=== PATIENT | male | born 1935 | race Caucasian/White ===

== ENCOUNTER 2016-06-16 13:56 | Inpatient (IN) ==
[2016-06-16] MEDS ORDERED: PATIENT'S OWN MED SUBQ SCH (14:45)
[2016-06-16] MEDS ORDERED: PATIENT'S OWN MED MISC SCH (14:45)
[2016-06-16 15:02] LABS: ALLEN TEST YES; BE 1.4 mmoll (-3.0-3.0); BLOOD TYPE ARTERIAL; DRAW SITE L RADIAL; METHB 0.7 % (0.0-1.5); O2(CT) 17.7 mL/dL (15.0-23.0); PCO2(98.6) 35 mmHg (35-45); PO2(98.6) 88 mmHg (60-100); SAMPLE BLOOD; SAO2 100.8 % (95.0-100.0); THB 12.9 g/dL (11.5-17.4); pH(98.6) 7.46 (7.35-7.45)
[2016-06-16 15:03] LABS: MODALITY ROOM AIR
--- NOTE | 2016-06-16 15:11 | Diag Imaging Result Document ---
PROCEDURE NAME: CHEST-2 VIEWS - 06/16/2016 PA AND LATERAL RADIOGRAPH OF THE CHEST: COMPARISON: 05/26/2016. FINDINGS: Inspiration is suboptimal. There is a stable calcified granuloma in the right upper lung zone. The lungs are grossly clear, otherwise. There is no definite pleural fluid collection. Cardiac silhouette and central vasculature are grossly unremarkable. IMPRESSION: Stable chest with no evidence of acute pathology.
[2016-06-16 15:27] LABS: MANUAL DIFF NEEDED? NO
--- NOTE | 2016-06-16 15:27 | EKG Report ---
Test Performed on : 06/16/2016 2:46:41 PM Test Reason : chest pain Blood Pressure : / mmHG Vent. Rate : 066 BPM Atrial Rate : 066 BPM P-R Int : 210 ms QRS Dur : 098 ms QT Int : 406 ms P-R-T Axes : 056 -23 050 degrees QTc Int : 425 ms Sinus rhythm. with 1st degree AV block. Cannot rule out Anterior infarct , age undetermined Abnormal ECG When compared with ECG of 31-MAY-2016 06:09, premature atrial complexes. are no longer present Confirmed by Javier Rojas MD ([id number]) on 06/17/2016 9:42:36 PM
[2016-06-16 15:30] LABS: BASO% 0.4 % (0.0-0.8); EOS# 0.34 X1000 (0.0-0.7); EOS% 4.3 % (0.0-10.0); HEMATOCRIT 38.2 % (42.0-52.0); HEMOGLOBIN 12.9 g/dL (14.0-18.0); LYMPH% 26.9 % (20.5-51.1); MCH 30.7 PG (27-31); MCHC 33.8 g/dL (33-37); MONO# 0.64 X1000 (0.11-0.59); MONO% 8.2 % (1.7-9.3); MPV 9.9 FL (7.4-10.4); NEUT% 60.2 % (42.2-75.2); PLT 208 X1000 (130-400)
[2016-06-16 15:36] LABS: INR 1.07; PROTIME 11.4 Seconds (9.2-11.7)
[2016-06-16 15:54] LABS: ALBUMIN 3.8 g/dL (3.5-5.0); CALCIUM 8.8 mg/dL (8.8-10.2); POTASSIUM 4.5 mmol/L (3.5-5.1); TOTAL BILIRUBIN 0.66 mg/dL (0.20-1.00); TOTAL PROTEIN 6.9 g/dL (6.3-8.3)
[2016-06-16] MEDS: ALBUTEROL NEB INH PRN ×3 (16:09→23:09)
[2016-06-16] MEDS: MORPHINE IV PRN (20:09)
[2016-06-16] MEDS: PROTONIX IV SCH (20:09)
[2016-06-16] MEDS: SODIUM CHLORIDE 0.9% INJ SCH (20:09)
[2016-06-16] MEDS: COREG PO SCH (20:18)
--- NOTE | 2016-06-16 22:05 | HISTORY AND PHYSICAL ---
CHIEF COMPLAINT: Symptomatic gallstone disease. Complains of pain in the right upper quadrant, back pain. HISTORY OF PRESENT ILLNESS: He is a 77-year-old white gentleman, recently discharged from the hospital after near-syncope evaluation. He was found to have symptomatic gallstone disease. He had a cardiac workup done by Dr. Masterson. He is stable. Patient wants to go home to do as an elective surgery. He continues to have intermittent abdominal pain and got admitted today for a laparoscopic cholecystectomy. Case was discussed with Dr. Barahona and Dr. Borjas. He is also on insulin pump. He has been scheduled for tomorrow afternoon. He also is very anxious. He needs Ativan an hour before the procedure. PAST MEDICAL HISTORY: 1. Morbid obesity. 2. Chronic kidney disease stage 3. 3. Coronary artery disease. 4. Type 2 diabetes on insulin pump. 5. Hypertension. 6. Hyperlipidemia. 7. Sleep apnea. 8. History of DVT in the left leg with chronic venous stasis dermatitis. 9. Chronic back pain due to spondylosis. 10. Symptomatic gallstone disease. PAST SURGICAL HISTORY: Left foot surgery, bilateral cataract surgery, history of laparotomy for benign tumor excision. IVC filter. Multiple cardiac stents. Repair of AV fistula in the groin and I and D of sebaceous cyst in the back and buttock. MEDICATIONS: Coreg 25 mg p.o. b.i.d., lisinopril/hydrochlorothiazide 20/12.5 daily, Neurontin 300 mg at bedtime, Effient 10 mg daily, Flomax 0.4 daily, Lasix 40 daily, allopurinol 100 daily, NovoLog, insulin pump. ALLERGIES: Not known. SOCIAL HISTORY: . Six children. 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 No smoking. No alcohol. Lives in [place]. FAMILY HISTORY: Father of heart attack at the age of 40. Mom of brain aneurysm at 39. HEALTH MAINTENANCE: Flu vaccine 2016, pneumonia in 2009, tetanus 2014, colonoscopy 2017, last stress test was unremarkable by Dr. Masterson. REVIEW OF SYSTEMS: HEENT: No headache. No vision problem. No earache. No sore throat. Neck: No goiter. No lymphadenopathy. No bruit. Cardiopulmonary: No chest pain, shortness of breath, PND, orthopnea. GI: Upper abdominal pain and the back pain.mostly on right side. : No history of hesitancy, frequency. Neurologic: No focal symptoms or weakness. PHYSICAL EXAMINATION: VITAL SIGNS: Stable. HEIGHT AND WEIGHT: 5 feet 7, 278 pounds. HEENT: Atraumatic, normocephalic. Pupils equal, react to light. TMs are normal. Nose and throat within normal limits. NECK: Supple. No lymphadenopathy. No goiter. CHEST: Bilateral air entry. No rales, no wheezing. HEART: Sounds are regular. No murmur. ABDOMEN: Belly is soft, obese, nontender. Good bowel sounds. No Caal's sign. EXTREMITIES: Chronic venous stasis changes in the left leg. NEUROLOGIC: No focal. INVESTIGATIONS: White cell count 7.8, hematocrit 38, platelets 208,000. PT 11 , INR 1. ABG: PH is 7.46, pCO2 35. PO2 88. SMA 7 is normal. Creatinine is 1.3. Glucose 149. ProBNP 1212. Amylase is normal. ASSESSMENT AND PLAN: 1. An 81-year-old, white gentleman, admitted to the hospital basically for symptomatic gallstone disease. Preop cardiac workup is negative. Plan is IV fluids after midnight and morphine as needed and Ativan 1 hour before the procedure. 2. Reconcile home medicines. 3. Hold insulin pump after midnight and continue on sliding scale. Discussed with Dr. Borjas for surgical consult and will follow up. Patient already stopped taking Effient for the last 3 days. Follow up. [facility]
[2016-06-16] MEDS: NS 1,000 ML IV SCH (22:40)
[2016-06-16] MEDS: AMBIEN PO PRN (22:43)
[2016-06-17] MEDS: MORPHINE IV PRN ×4 (00:33→22:26)
[2016-06-17] MEDS: ALBUTEROL NEB INH PRN ×3 (04:07→19:57)
[2016-06-17] MEDS ORDERED: ATIVAN IV ONE (10:36)
[2016-06-17] MEDS: PRINZIDE 20/12.5MG PO SCH (10:42)
[2016-06-17] MEDS: COREG PO SCH ×2 (10:42→20:14)
--- NOTE | 2016-06-17 11:32 | PROGRESS NOTE ---
DATE: 06/17/2016 SUBJECTIVE: Feels well. He continues to intermittently have colicky right upper quadrant pain. No chest pain. No shortness of breath. He is quite anxious about surgery, but he is overall doing well with this also. OBJECTIVE: Vital Signs: Temperature is 98.1 degrees, pulse 58, blood pressure 171/60, oxygen saturation 99% on room air. General: He is alert, in no acute distress. HEENT: There is no scleral icterus Cardiovascular: Normal rate, regular rhythm. Pulmonary: No increased work of breathing. Abdomen: Soft, nontender, nondistended, but he is quite obese with a large midline incision. Integument: Otherwise warm and dry without jaundice. LABORATORY DATA: White count normal at 7, hematocrit 38, INR is 1.07. His ABG looked good at 7.46, 35, Creatinine stable for him at 1.3. Glucose was elevated at 400 this morning but was normal at 93 yesterday. He is being treated with his insulin pump. ASSESSMENT AND PLAN: This is an 81-year-old male well known to as is his family who has symptomatic cholelithiasis that is impeding his life quite significantly. He has been off of his Effient. He has had extensive cardiac workup for his chest pain that has been unrevealing. Dr. Andino feels he is safe for surgery, as do I. We had an extensive discussion regarding risks, benefits and alternatives including the possibility of requiring open cholecystectomy in the setting of dense adhesions. We will plan to go to surgery today to perform cholangiogram and postoperative course will be dictated by the findings at the time of surgery.
[2016-06-17] MEDS ORDERED: SODIUM CHLORIDE 0.9% ONE (11:56)
[2016-06-17] MEDS ORDERED: MARCAINE 0.25% PF/EPI 1:200,000 ONE (11:56)
[2016-06-17] MEDS ORDERED: LR 0 ML ONE (11:56)
[2016-06-17] MEDS ORDERED: KEFZOL 2 GM/D5W 50 ML ONE (12:16)
[2016-06-17] MEDS ORDERED: REGLAN ONE (12:18)
[2016-06-17] MEDS ORDERED: PEPCID ONE (12:18)
[2016-06-17 13:53] LABS: URINE SOURCE CATH
[2016-06-17 14:04] LABS: BILIRUBIN URINE NEGATIVE (NEGATIVE); BLOOD URINE TRACE-LYSED (NEGATIVE); CLARITY CLEAR (CLEAR); COLOR YELLOW; GLUCOSE URINE 500 mg/dL (NEGATIVE); LEUKOCYTES URINE NEGATIVE (NEGATIVE); NITRITE URINE NEGATIVE (NEGATIVE); PH URINE 5.5; PROTEIN URINE TRACE mg/dL (NEGATIVE); UROBILINOGEN URINE 0.2 EU/dL (0.2-1.0)
[2016-06-17 14:05] LABS: URINE EPITHELIAL CELLS <10 /HPF (<10); URINE RBC <10 /HPF (<10); URINE WBC <10 /HPF (<10)
[2016-06-17] MEDS ORDERED: DIPRIVAN 1% ONE (15:13)
[2016-06-17] MEDS ORDERED: FENTANYL ONE (15:13)
[2016-06-17] MEDS ORDERED: NEOSTIGMINE ONE (15:22)
[2016-06-17] MEDS ORDERED: XYLOCAINE-MPF 2% ONE (15:23)
[2016-06-17] MEDS ORDERED: SODIUM CHLORIDE 0.9% 30 ML ONE (15:23)
[2016-06-17] MEDS ORDERED: ZOFRAN ONE (15:23)
[2016-06-17] MEDS ORDERED: QUELICIN (DOSE) ONE (15:23)
[2016-06-17] MEDS ORDERED: NORCURON ONE (15:23)
[2016-06-17] MEDS ORDERED: ROBINUL ONE (15:23)
[2016-06-17] MEDS ORDERED: NEO-SYNEPHRINE ONE (15:23)
[2016-06-17] MEDS ORDERED: LR 1,000 ML ONE (15:23)
[2016-06-17 15:37] LABS: ALLEN TEST YES; BE -1.1 mmoll (-3.0-3.0); BLOOD TYPE ARTERIAL; DRAW SITE R RADIAL; METHB 1.7 % (0.0-1.5); PCO2(98.6) 48 mmHg (35-45); PO2(98.6) 124 mmHg (60-100); SAMPLE BLOOD; SAO2 99.7 % (95.0-100.0); SRATE 12 BPM; THB 12.4 g/dL (11.5-17.4); TVOL 700 mL; pH(98.6) 7.33 (7.35-7.45)
[2016-06-17 15:39] LABS: MODALITY VENTILATOR
[2016-06-17] MEDS ORDERED: NS 1,000 ML ONE (16:28)
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
[2016-06-17] MEDS: ZYLOPRIM PO SCH (17:26)
[2016-06-17] MEDS: FLOMAX PO SCH (17:26)
[2016-06-17] MEDS: LASIX PO SCH (17:26)
[2016-06-17] MEDS: NS 1,000 ML IV SCH (17:27)
[2016-06-17] MEDS: PATIENT'S OWN MED SUBQ SCH ×2 (18:36→23:27)
[2016-06-17] MEDS: PROTONIX IV SCH (20:09)
[2016-06-17] MEDS: PERIDEX MT SCH (20:09)
[2016-06-18] MEDS: MORPHINE IV PRN ×4 (00:25→21:43)
[2016-06-18] MEDS: AMBIEN PO PRN ×2 (01:20→20:25)
[2016-06-18] MEDS: ALBUTEROL NEB INH PRN ×6 (02:30→23:19)
[2016-06-18] MEDS: PATIENT'S OWN MED SUBQ SCH ×4 (06:02→21:38)
[2016-06-18] MEDS: LASIX PO SCH (08:52)
[2016-06-18] MEDS: COREG PO SCH ×2 (08:52→20:25)
[2016-06-18] MEDS: PERIDEX MT SCH ×2 (08:52→20:25)
[2016-06-18] MEDS: PRINZIDE 20/12.5MG PO SCH (08:52)
[2016-06-18] MEDS: FLOMAX PO SCH (08:52)
[2016-06-18] MEDS: ZYLOPRIM PO SCH (08:52)
--- NOTE | 2016-06-18 13:20 | PROGRESS NOTE ---
DATE: 06/18/2016 SUBJECTIVE: He feels okay, a little sore. No nausea or vomiting. OBJECTIVE: Vital Signs: Temperature 97.6 degrees, pulse was 58, blood pressure 129/47, oxygen saturation 100% on room air. General: He is alert. HEENT: No scleral icterus. Abdomen: Soft, appropriately tender. Incision clean, dry, and intact with some serosanguineous drainage. The GUMARO drain is serosanguineous. LABORATORY DATA: A review of his labs, hematocrit is stable. Glucose has been okay. ASSESSMENT AND PLAN: An 81-year-old male, status post open cholecystectomy, laparoscopic converted to open cholecystectomy related to intra-abdominal adhesions. He is doing okay. We are going to remove his Langley catheter and advance his diet as tolerated. He will need physical therapy and up out of bed and possibly plan for discharge tomorrow if he is tolerating a diet. I can remove his drain next Wednesday in my office.
[2016-06-18] MEDS: NS 1,000 ML IV SCH (17:23)
[2016-06-18] MEDS ORDERED: ZOFRAN IV PRN (17:53)
[2016-06-18] MEDS: PROTONIX IV SCH (20:26)
[2016-06-18] MEDS: SODIUM CHLORIDE 0.9% INJ SCH (20:26)
[2016-06-19] MEDS: ALBUTEROL NEB INH PRN ×5 (03:14→20:53)
[2016-06-19] MEDS: PATIENT'S OWN MED SUBQ SCH ×4 (06:06→20:03)
[2016-06-19 06:21] LABS: MANUAL DIFF NEEDED? NO
[2016-06-19 06:22] LABS: BASO% 0.3 % (0.0-0.8); EOS# 0.34 X1000 (0.0-0.7); EOS% 3.8 % (0.0-10.0); HEMATOCRIT 33.7 % (42.0-52.0); HEMOGLOBIN 11.6 g/dL (14.0-18.0); IMM GRAN# 0.02 X1000 (0.0-0.04); IMM GRAN% 0.2 % (0.0-0.5); LYMPH% 24.8 % (20.5-51.1); MCH 31.2 PG (27-31); MCHC 34.4 g/dL (33-37); MCV 90.6 FL (81-99); MONO# 1.09 X1000 (0.11-0.59); MONO% 12.3 % (1.7-9.3); MPV 10.6 FL (7.4-10.4); NEUT% 58.6 % (42.2-75.2); PLT 184 X1000 (130-400); RBC 3.72 XMIL (4.7-6.1)
[2016-06-19 06:33] LABS: CALCIUM 8.2 mg/dL (8.8-10.2); POTASSIUM 4.4 mmol/L (3.5-5.1)
[2016-06-19] MEDS: MORPHINE IV PRN ×3 (06:37→20:02)
--- NOTE | 2016-06-19 06:37 | PROGRESS NOTE ---
DATE: 06/19/2016 SUBJECTIVE: The patient is doing okay. He says he has some mild nausea. No major issues. OBJECTIVE: Vital Signs: The patient is currently afebrile. His vital signs have been stable. GUMARO drain has 60 mL of serosanguineous output noted. General: No acute distress. Resting comfortably. Cardiovascular: Regular rate and rhythm. Lungs: Grossly clear. Abdomen: Soft, obese. Appropriately tender. The incisions with dressing in place. GUMARO drain is in place with serosanguineous output. LABORATORIES OF NOTE: The patient's glucose was 42. ASSESSMENT AND PLAN: An 81-year-old male, status post open cholecystectomy. At this time, he is clinically doing okay. His hypoglycemia is currently being managed by his primary care physician. At this time, we will keep the Yariel-Montalvo drain in place until he follows up with Dr. Borjas in his office next week. He can be discharged once deemed medically stable by his primary care team.
[2016-06-19] MEDS ORDERED: D50W SYRINGE ONE ×2 (06:52→16:27)
[2016-06-19] MEDS: FLOMAX PO SCH (08:38)
[2016-06-19] MEDS: PRINZIDE 20/12.5MG PO SCH (08:38)
[2016-06-19] MEDS: ZYLOPRIM PO SCH (08:38)
[2016-06-19] MEDS: COREG PO SCH ×2 (08:38→20:02)
[2016-06-19] MEDS: LASIX PO SCH (08:38)
[2016-06-19] MEDS: PERIDEX MT SCH ×2 (08:38→20:02)
[2016-06-19] MEDS ORDERED: BENADRYL IV PRN (10:39)
[2016-06-19] MEDS: NS 1,000 ML IV SCH (14:07)
[2016-06-19] MEDS ORDERED: D50W SYRINGE IV ONE (17:35)
[2016-06-19] MEDS: PROTONIX IV SCH (20:02)
[2016-06-19] MEDS: SODIUM CHLORIDE 0.9% INJ SCH (20:02)
--- NOTE | 2016-06-20 06:43 | PROGRESS NOTE ---
DATE: 06/20/2016 SUBJECTIVE: The patient is doing okay. No major issues. OBJECTIVE: Vital Signs: Patient is currently afebrile. His vital signs have been stable. General: His GUMARO has had 20 mL of serosanguineous output. No acute distress. Resting comfortably. Cardiovascular: Regular rate and rhythm. Lungs: Grossly clear. Abdomen: Soft, obese. Appropriately tender. Incision with dressing in place. GUMARO drain as noted above. LABORATORY: Glucose trend has been reviewed. ASSESSMENT/PLAN: An 81-year-old, male status post open cholecystectomy. At this time, he is clinically doing okay. His glucose levels have appeared to be relatively stable, although ranging anywhere from 40-60. This is currently being managed by his primary care physician at this time. Once deemed clinically stable, could be discharged home and have his Yariel-Montalvo drain removed by Dr. Borjas on Wednesday in the office.
[2016-06-20] MEDS: PATIENT'S OWN MED SUBQ SCH ×2 (06:59→10:43)
[2016-06-20] MEDS: ALBUTEROL NEB INH PRN ×2 (07:36→11:38)
[2016-06-20] MEDS: FLOMAX PO SCH (09:12)
[2016-06-20] MEDS: LASIX PO SCH (09:12)
[2016-06-20] MEDS: COREG PO SCH (09:12)
[2016-06-20] MEDS: PRINZIDE 20/12.5MG PO SCH (09:12)
[2016-06-20] MEDS: ZYLOPRIM PO SCH (09:13)
[2016-06-20] MEDS: PERIDEX MT SCH (09:13)
[2016-06-20 11:17] VITALS: BP 133/56
--- NOTE | 2016-06-20 12:29 | PROGRESS NOTE ---
DATE: 06/20/2016 SUBJECTIVE: Mr. Nelson had cholecystectomy done by Dr. Borjas. He is doing better. He had some episode of hypoglycemia yesterday; however, he is eating better. He wants to go home today and I will discharge him. -0
--- NOTE | 2016-06-21 21:42 | DISCHARGE SUMMARY ---
ADMISSION DATE: 06/16/2016 DISCHARGE DATE: 06/20/2016 DISCHARGING DIAGNOSIS: Symptomatic gallstone disease. SECONDARY DIAGNOSES: 1. Morbid obesity. 2. Chronic kidney disease stage 3. 3. Coronary artery disease status post stent and stable cardiac perfusion scan 2016. 4. Type 2 diabetes on insulin pump. 5. Hypertension. 6. Hyperlipidemia. 7. Sleep apnea. 8. History of deep vein thrombosis in the left leg. 9. Chronic venous stasis dermatitis. 10. Chronic back pain due to spondylosis. CONSULTS: Dr. Nick Borjas. PROCEDURES: Open cholecystectomy. BRIEF HISTORY: Please see the H and P that was done on 06/16/2016. In brief he is a 77-year-old white gentleman admitted to the hospital for symptomatic gallstone disease. The patient was asked to stop the Effient prior to the admission. He also had a clearance from the [facility]. On the following day patient had open cholecystectomy done. Postoperative course was uneventful. GUMARO drain was removed. Langley catheter was removed. Blood sugars were running low. Insulin pump was taken out. LABORATORIES: At the time of discharge. CBC. White cell count 8.8, hematocrit 33.7, platelets 184,000. ABG, pH is 7.33, pCO2 35, PO2 88 on room air. SMA 7, creatinine is 2.0. Patient was discharged in stable condition by Dr. Fermín Suarez and Dr. Baig with these following instructions. Coreg 25 p.o. b.i.d., lisinopril/hydrochlorothiazide 20/12.5 daily, insulin pump, Effient 10 mg daily, Flomax 0.4 daily, Lasix 40 mg daily, albuterol as needed, Zyloprim 100 mg daily, [place] 10 as needed for pain. Follow up with Dr. Borjas next week as well as my office.
== END 2016-06-20 12:45 | disposition home or self-care (01) | DRG 415 ==
LOC: DIRADM 13:56 → 4N 14:16
PROVIDERS: ADMIT Internal Medicine; ATTEND Internal Medicine
PROC: 0FT40ZZ Resection of Gallbladder, Open Approach (ICD-10-PCS; principal; 2016-06-17 12:25)
PROC: 0FJ44ZZ Inspection of Gallbladder, Percutaneous Endoscopic Approach (ICD-10-PCS; 2016-06-17 12:25)
DX: K80.20 Calculus of gallbladder without cholecystitis without obstruction (principal); Z68.42 Body mass index [BMI] 45.0-49.9, adult; E11.22 Type 2 diabetes mellitus with diabetic chronic kidney disease; E11.649 Type 2 diabetes mellitus with hypoglycemia without coma; N18.3 Chronic kidney disease, stage 3 (moderate); Z96.41 Presence of insulin pump (external) (internal); E66.01 Morbid (severe) obesity due to excess calories; I12.9 Hypertensive chronic kidney disease with stage 1 through stage 4 chronic kidney disease, or unspecified chronic kidney disease; I25.10 Atherosclerotic heart disease of native coronary artery without angina pectoris; E78.5 Hyperlipidemia, unspecified; G47.30 Sleep apnea, unspecified; I83.12 Varicose veins of left lower extremity with inflammation; G47.33 Obstructive sleep apnea (adult) (pediatric); K66.0 Peritoneal adhesions (postprocedural) (postinfection); M47.819 Spondylosis without myelopathy or radiculopathy, site unspecified; N40.0 Benign prostatic hyperplasia without lower urinary tract symptoms; Z95.5 Presence of coronary angioplasty implant and graft; Z79.899 Other long term (current) drug therapy; Z79.02 Long term (current) use of antithrombotics/antiplatelets; Z86.718 Personal history of other venous thrombosis and embolism; I25.2 Old myocardial infarction; Z82.49 Family history of ischemic heart disease and other diseases of the circulatory system; Z83.3 Family history of diabetes mellitus
CPT/HCPCS: 71020; 80048; 80053; 81001; 82150; 82805; 82948; 83880; 85025; 85610; 88304; 93005; 93010; 94002; 94640; 94761; 94799; C1751; C9113; J0330; J0690; J1200; J2060; J2270; J2370; J2405; J2765; J3010; J7030; J7120; Q9966; J2710; S0028; S0164

== ENCOUNTER 2016-08-17 11:27 | Inpatient (IN) ==
--- NOTE | 2016-08-17 12:14 | EKG Report ---
Test Performed on : 08/17/2016 11:40:20 AM Test Reason : Chest Pain Blood Pressure : / mmHG Vent. Rate : 075 BPM Atrial Rate : 075 BPM P-R Int : 196 ms QRS Dur : 090 ms QT Int : 402 ms P-R-T Axes : 081 -18 039 degrees QTc Int : 448 ms Sinus rhythm. with premature supraventricular complexes. Otherwise normal ECG When compared with ECG of 16-JUN-2016 14:46, premature supraventricular complexes. are now present Minimal criteria for Anterior infarct are no longer present Unconfirmed Result
--- NOTE | 2016-08-17 13:18 | Diag Imaging Result Document ---
PROCEDURE NAME: SHANTANU ABDOMEN - 08/17/2016 KUB: FINDINGS: There is stool throughout the colon. There is no evidence of gastric or small-bowel dilatation. There is a vena cava filter. There is a surgical clip in the right upper quadrant. IMPRESSION: Mild constipation. No evidence of acute disease.
[2016-08-17 13:21] LABS: MANUAL DIFF NEEDED? NO
[2016-08-17 13:32] LABS: BASO% 0.6 % (0.0-0.8); EOS# 0.41 X1000 (0.0-0.7); EOS% 4.6 % (0.0-10.0); HEMATOCRIT 37.1 % (42.0-52.0); HEMOGLOBIN 12.5 g/dL (14.0-18.0); IMM GRAN# 0.02 X1000 (0.0-0.04); IMM GRAN% 0.2 % (0.0-0.5); LYMPH# 2.64 X1000 (1.2-3.4); LYMPH% 29.8 % (20.5-51.1); MCHC 33.7 g/dL (33-37); MCV 89.2 FL (81-99); MONO# 0.92 X1000 (0.11-0.59); MONO% 10.4 % (1.7-9.3); MPV 10.5 FL (7.4-10.4); NEUT% 54.4 % (42.2-75.2); PLT 206 X1000 (130-400); RBC 4.16 XMIL (4.7-6.1)
[2016-08-17 13:42] LABS: INR 1.01; PROTIME 10.6 Seconds (9.2-11.7); PTT 28.5 Seconds (22.0-36.0)
[2016-08-17 13:59] LABS: ALBUMIN 3.6 g/dL (3.5-5.0); CALCIUM 8.8 mg/dL (8.8-10.2); MAGNESIUM 1.9 mg/dL (1.5-2.7); POTASSIUM 4.5 mmol/L (3.5-5.1); TOTAL BILIRUBIN 0.38 mg/dL (0.20-1.00); TOTAL PROTEIN 7.3 g/dL (6.3-8.3)
[2016-08-17] MEDS ORDERED: DILAUDID IM PRN (15:15)
[2016-08-17] MEDS ORDERED: ZOFRAN IV PRN (15:15)
[2016-08-17] MEDS ORDERED: TYLENOL PO PRN (15:15)
[2016-08-17] MEDS ORDERED: ZOFRAN ONE (19:09)
[2016-08-17] MEDS ORDERED: DILAUDID ONE (19:09)
[2016-08-17 21:59] LABS: URINE MICRO REVIEW NEEDED? NO; URINE SOURCE CLEAN CATCH
[2016-08-17 22:02] LABS: BILIRUBIN URINE NEGATIVE (NEGATIVE); BLOOD URINE NEGATIVE (NEGATIVE); COLOR YELLOW; GLUCOSE URINE NEGATIVE (NEGATIVE); LEUKOCYTES URINE MODERATE (NEGATIVE); NITRITE URINE NEGATIVE (NEGATIVE); PROTEIN URINE NEGATIVE (NEGATIVE); SP GRAVITY URINE 1.011; TURBIDITY URINE CLEAR (CLEAR); UR EPITHELIAL CELLS <10 /HPF (<10); URINE BACTERIA NEGATIVE /HPF; URINE CULTURE NEEDED? YES; URINE RBC <10 /HPF (<10); URINE WBC <10 /HPF (<10); UROBILINOGEN URINE NORMAL (NORMAL)
--- NOTE | 2016-08-17 22:10 | HISTORY AND PHYSICAL ---
CHIEF COMPLAINT: 1. Chest pressure while shooting the pool. 2. Abdominal distention. 3. Swelling of left leg. HISTORY OF PRESENT ILLNESS: Is 81-year-old white gentleman was evaluated in the emergency room after he was shooting the pool developed upper abdominal discomfort, chest pain, shortness of breath. He also has left leg swelling and drainage. Patient was seen by Dr. Alvares. Patient was found to have azotemia, left leg cellulitis and also rule out [place]. His belly was swelling with some fluid and chest x-ray was stable. KUB constipation and dilated colon. Basically admitted to the hospital left leg cellulitis, evaluation of the chest pain to rule out [place]. He had recently stress test was done which is unremarkable, prior open cholecystectomy. As a result a hospital admission was warranted. PAST MEDICAL HISTORY: Morbid obesity, chronic kidney disease stage 3, coronary artery disease, type 2 diabetes on insulin pump, hypertension, hyperlipidemia, sleep apnea, chronic pain due to spondylosis, history of DVT in the left leg with chronic venous stasis dermatitis. PAST SURGICAL HISTORY: Cholecystectomy, left foot surgery, bilateral cataract surgery, history of laparotomy for benign tumor excision, IVC filter, multiple cardiac stents repair, AV fistula in the groin, I and D of sebaceous cyst in the back and buttock. MEDICINES: Coreg 25 p.o. b.i.d., lisinopril/hydrochlorothiazide 20/12.5 daily, Neurontin 300 bedtime, Effient 10 mg daily, Flomax 0.4 daily, Lasix 40 daily, allopurinol 100 daily, NovoLog insulin pump. ALLERGIES: Not known. SOCIAL HISTORY: . Six children. 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 No smoking, no alcohol, lives in [place]. FAMILY HISTORY: Father of heart attack at the age of 40, mom of brain aneurysm at 39. HEALTH MAINTENANCE: Flu vaccine 2016, pneumococcal vaccine 2009, tetanus 2013, colonoscopy 2006, last stress test May 2016 is unremarkable. REVIEW OF SYSTEMS: HEENT: No headache. No vision problem. No earache. No sore throat. Neck: No goiter. No lymphadenopathy. No bruit. Cardiopulmonary: Chest discomfort. No PND, no orthopnea. Swelling of left leg. GI: Abdominal distention, recently gallbladder surgery, constipation. : No history of hesitancy, frequency and chronic back pain. Neurologic: No obvious focal symptoms or weakness or seizures. PHYSICAL EXAMINATION: VITAL SIGNS: Afebrile, vitals are stable on 2 L of oxygen 94%. HEENT EXAM: Atraumatic, normocephalic. Pupils equal, react to light. TMs are normal. Nose and throat within normal limits. NECK: Supple. No lymphadenopathy. No goiter. CHEST: Bilateral air entry. No rales, no wheezing. HEART: Sounds are regular. BELLY: Soft, obese, nontender. Good bowel sounds. No masses palpable. RECTAL: Deferred. EXTREMITIES: Left leg is swollen, red. NEURO: No obvious deficits. INVESTIGATIONS: White cell count 8.8, hematocrit 37, platelets 206,000. PT 10, INR 1.0. SMA 7 is normal except BUN 14, creatinine 2.4. ProBNP is normal. LFTs were normal. Amylase, lipase were normal. ASSESSMENT AND PLAN: 1. 81-year-old white gentleman admitted to the hospital with atypical chest pain. Follow up on serial cardiac enzymes and continue on the Effient. 2. Abdominal distention, constipation. MiraLAX and Dulcolax as needed. 3. Left leg cellulitis. IV Zosyn. Wound care consult. 4. Reconcile home medications. 5. Type 2 diabetes on insulin pump. Follow up on sliding scale with insulin coverage. 6. Deep vein thrombosis prophylaxis with antithrombotic stockings and gastrointestinal prophylaxis IV Protonix. 7. Will follow up on clinical course. cc: David Andino MD
[2016-08-18] MEDS: PROTONIX IV SCH (00:04)
[2016-08-18] MEDS ORDERED: AMBIEN PO PRN ×2 (00:04→17:59)
[2016-08-18] MEDS ORDERED: MIRALAX PO ONE (00:04)
[2016-08-18] MEDS ORDERED: SODIUM CHLORIDE 0.9% INJ SCH (00:04)
[2016-08-18] MEDS: HUMULIN R SUBQ SCH ×5 (00:04→22:11)
[2016-08-18] MEDS ORDERED: NORCO-7.5 ONE (00:09)
[2016-08-18] MEDS: NORCO-7.5 PO PRN ×3 (00:16→22:49)
[2016-08-18] MEDS ORDERED: AMBIEN PO ONE (00:17)
[2016-08-18] MEDS: ZOSYN 3.375 GM/NS 3.375 GM/50 ML IVPB IV SCH ×4 (01:00→17:51)
--- NOTE | 2016-08-18 05:01 | EKG Report ---
Test Performed on : 08/17/2016 4:42:23 PM Test Reason : chest pain Blood Pressure : / mmHG Vent. Rate : 067 BPM Atrial Rate : 067 BPM P-R Int : 214 ms QRS Dur : 092 ms QT Int : 414 ms P-R-T Axes : 055 -14 050 degrees QTc Int : 437 ms Sinus rhythm. with 1st degree AV block. Otherwise normal ECG When compared with ECG of 17-AUG-2016 11:40, (Unconfirmed) premature supraventricular complexes. are no longer present Confirmed by Joyce LEYVA, Robert Reyes ([id number]) on 08/18/2016 7:19:03 PM
[2016-08-18 07:22] LABS: MANUAL DIFF NEEDED? NO
[2016-08-18 07:33] LABS: BASO% 0.5 % (0.0-0.8); EOS# 0.28 X1000 (0.0-0.7); EOS% 3.8 % (0.0-10.0); HEMATOCRIT 35.4 % (42.0-52.0); HEMOGLOBIN 11.7 g/dL (14.0-18.0); IMM GRAN# 0.02 X1000 (0.0-0.04); IMM GRAN% 0.3 % (0.0-0.5); LYMPH# 2.18 X1000 (1.2-3.4); LYMPH% 29.7 % (20.5-51.1); MCH 29.7 PG (27-31); MCHC 33.1 g/dL (33-37); MCV 89.8 FL (81-99); MONO# 1.01 X1000 (0.11-0.59); MONO% 13.8 % (1.7-9.3); MPV 10.4 FL (7.4-10.4); NEUT% 51.9 % (42.2-75.2); PLT 167 X1000 (130-400); RBC 3.94 XMIL (4.7-6.1)
[2016-08-18 07:48] LABS: HEMOGLOBIN A1C 7.9 % (4.8-6.0)
[2016-08-18 08:05] LABS: CALCIUM 8.5 mg/dL (8.8-10.2)
[2016-08-18 08:15] LABS: POTASSIUM 5.3 mmol/L (3.5-5.1)
[2016-08-18] MEDS: MIRALAX PO SCH (09:00)
[2016-08-18] MEDS: LASIX IV SCH (10:00)
--- NOTE | 2016-08-18 12:57 | CONSULTATION ---
DATE OF CONSULTATION: 08/18/2016 HISTORY OF PRESENT ILLNESS: This is an 81-year-old male well known to me who has venostasis in his bilateral lower extremities. He has recently completed Unna boot therapy of bilateral lower legs for some superficial ulcerations which were completely healed just a couple of weeks ago. He presented back now to Dr. Andino's service through the ER with atypical chest pain which he has chronically and is being worked up for that. He has noted increased swelling of his left lower extremity more so than the right. He has been unable to wear his compression garments due to discomfort at home. Denies any fevers. PAST MEDICAL HISTORY: 1. Obesity. 2. CKD. 3. Coronary artery disease. 4. Diabetes with an insulin pump. 5. Hypertension. 6. Hyperlipidemia. 7. Obstructive sleep apnea. 8. Chronic pain. 9. History of DVT in the left leg. PAST SURGICAL HISTORY: Cholecystectomy, left eye cataract, laparotomy for tumor excision, IVC filter, cardiac stents, repair of AV fistula in the groin, sebaceous cyst I and D. SOCIAL HISTORY: He is . His children are here in town. Daughter is with him now. 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 No smoking. No alcohol. Lives in [place]. FAMILY HISTORY: Coronary artery disease and cerebral aneurysm. REVIEW OF SYSTEMS: A 10-point review of systems is negative except as mentioned in HPI. PHYSICAL EXAMINATION: Temperature is 98.1, pulse 74, blood pressure 125/48, oxygen saturation 98% on 2 L. General: He is alert, no acute distress. HEENT: No scleral icterus. Cardiovascular: Normal rate, regular rhythm. Pulmonary: No increased work of breathing. He is on 2 L nasal cannula. Abdomen: Distended but at his baseline from an obesity standpoint. Nontender. Extremities: The right lower extremity has chronic venostasis changes, but there is no real edema here. The skin looks healthy with no ulceration. On the left side, this is more swollen than the right. There is some worsening of the chronic renetta appearance, more erythematous. There is a superficial ulceration of approximately 2 cm on the posterior aspect and several areas that are weeping clear fluid. Otherwise, normal pedal pulses distally. Neurologic: He is alert and oriented. Normal strength throughout. DIAGNOSTIC DATA: White count is 7, hematocrit 35, platelets 167. Creatinine is 2.7, potassium 5.3, glucose 335. Troponins are 0.046. Urinalysis with moderate leukocytes. ASSESSMENT AND PLAN: This is an 81-year-old man admitted with chest pain. He has chronic venostasis and history of DVT in his left lower extremity. His wound looked far better than this 2 weeks ago. At that time, we stopped Unna boot therapy and transitioned him over the compressive. I suspect now that he has just had inadequate compression therapy at home due to intolerance of compression stockings and that this is why he has worsened. However, I would like to repeat a lower extremity ultrasound on the left to rule out any acute DVT here contributing. I have asked Yvrose Kessler to place Unna boot back on left lower extremity. We will continue compression on the right. He is on antibiotics per Dr. Andino, and I think that is not unreasonable given the appearance that he has here and a new or a recurrent wound on his left posterior calf. We will continue to follow along. cc: MD David Carreno MD MTDD
--- NOTE | 2016-08-18 18:16 | PROGRESS NOTE ---
DATE: 08/18/2016 SUBJECTIVE: 1. Complains of left leg swelling and pain. 2. Insomnia. 3. No chest pain. Abdominal distention is improved after bowel movement. He has been off on insulin pump. REVIEW OF SYSTEMS: None reported. PHYSICAL EXAMINATION: 5 feet 6 inches, 272 pounds, afebrile.Vital Signs: Stable. On nasal oxygen 2 L 93%. HEENT Exam: Within normal limits. Neck: Supple. No lymphadenopathy. Chest: Clear. Heart: Sounds regular. Abdomen: Belly is soft, obese, suboptimal exam. Extremities: Left lower extremity was wrapped with a dressing. Neurological: Nonfocal. INVESTIGATIONS: CBC: White cell count 7.3, hematocrit 35, platelets of 167,000. Sodium 135, potassium 5.3, chloride 95, BUN 52, creatinine 2.6. Glucose 335. A1c 7.9. Cardiac enzymes were normal. Urinalysis is clear. ASSESSMENT AND PLAN: 1. Atypical chest pain. Recent stress test is negative. Ruled out for IA. 2. Abdominal distention probably constipation. Continue on MiraLAX and Dulcolax. 3. Insomnia. Ambien as needed. 4. Left leg cellulitis on IV Zosyn. Dr. Borjas consulted. He is going to do the Doppler studies. 5. Reconcile home medications. 6. Waiting for a bed in the upstairs. Discussed with the family. LEVEL OF DOCUMENTATION: 25 minutes. cc: David Andino MD
[2016-08-18] MEDS: LOVENOX SUBQ SCH (18:24)
[2016-08-18] MEDS ORDERED: SUBCUTANEOUS INSULIN PUMP MC SCH (21:00)
--- NOTE | 2016-08-18 22:01 | Extremity Venous Study ---
PROCEDURE NAME: Venous U/S Left Leg - 08/18/2016 INDICATION: 1. Edema, weeping of left leg. 2. History of DVT. REQUESTING PHYSICIAN: Dr. Nick Borjas. INSTRUCTOR [employer]I: Shayla. COMPARISON STUDY: 02/15/2012. PROCEDURE: Left lower extremity venous duplex and color flow imaging. EQUIPMENT: Starriserid E9 ultrasound system with a 9 LD transducer. FINDINGS: Imaging in the left lower extremity venous system with comparison shot of the right common femoral vein were obtained in both sagittal and transverse planes. Doppler was used to evaluate veins for spontaneity, phasicity, respiratory excursion, and digital augmentation. RESULTS: DVT noted in the left distal common femoral, superficial femoral vein, and popliteal vein, with some flow present. Characteristics may indicate that it might be chronic, although age is difficult to obtain on this study. There is reflux noted in bilateral common femoral veins. INTERPRETATION: DVT noted in the left distal common femoral, superficial femoral vein, and popliteal vein, with flow present,, which may be a chronic DVT. There is also reflux noted in the bilateral common femoral veins. cc: MD Nasrin Chapman MD Jagan Reddy, MD
[2016-08-18] MEDS: COREG PO SCH (22:48)
[2016-08-18] MEDS: PATIENT'S OWN MED SUBQ SCH (22:51)
[2016-08-19] MEDS: DUONEB (A & A) INH PRN ×4 (00:20→19:23)
[2016-08-19] MEDS: PROTONIX IV SCH (00:55)
[2016-08-19] MEDS: PRINZIDE 20/12.5MG PO SCH (08:15)
[2016-08-19] MEDS: LASIX IV SCH (08:15)
[2016-08-19] MEDS: FLOMAX PO SCH (08:15)
[2016-08-19] MEDS: ZYLOPRIM PO SCH (08:15)
[2016-08-19] MEDS: ZOSYN 3.375 GM/NS 3.375 GM/50 ML IVPB IV SCH ×3 (08:15→21:32)
[2016-08-19] MEDS: COREG PO SCH ×2 (08:15→21:28)
[2016-08-19] MEDS: MIRALAX PO SCH (08:16)
--- NOTE | 2016-08-19 08:50 | Diag Imaging Result Document ---
PROCEDURE NAME: CHEST-PORTABLE - 08/17/2016 2 VIEWS OF THE CHEST: FINDINGS: The inspiration is suboptimal. There is minimal atelectasis in the lingula. Otherwise, there has been no significant change since 06/16/2016. IMPRESSION: Minimal lingular atelectasis.
[2016-08-19] MEDS ORDERED: PNEUMOVAX 23 IM ONE (09:00)
--- NOTE | 2016-08-19 09:11 | PROGRESS NOTE ---
DATE: 08/19/2016 SUBJECTIVE: Interval history was reviewed and no chest pain. REVIEW OF SYSTEMS: Abdominal distention is much improved. OBJECTIVE: Vital Signs: On examination, vitals are stable. Weight 270 pounds. HEENT: Exam within normal limits. Neck: Supple. No lymphadenopathy. No goiter. Chest: Clear to auscultation. Heart: Sounds are regular. Abdomen: Belly is soft, obese, nontender. Good bowel sounds. Extremities: Left leg shows chronic venous stasis changes noted with cellulitis. LABS: Blood sugars were running 170. Cardiac enzymes were negative. Urine cultures were negative. ASSESSMENT AND PLAN: 1. Chest pain, ruled out for myocardial infarction. Continue present medical therapy. 2. Abdominal distention improved after bowel movement. 3. Left leg cellulitis with chronic venous stasis changes. Continue on intravenous Zosyn. The patient is getting venous Dopplers on one or both as per Dr. Borjas. Disposition: Hopefully he will be discharged to home and continue present medical therapy. 4. Deep vein thrombosis prophylaxis. Lovenox was ordered 30 mg subcutaneously every 24 hours. 5. Chronic kidney disease, stable. 6. Diabetes on insulin pump, stable. LEVEL OF DOCUMENTATION: 35 minutes. cc: David Andino MD
--- NOTE | 2016-08-19 11:28 | PROGRESS NOTE ---
DATE: 08/19/2016 SUBJECTIVE: Feels better. Denies any chest pain or shortness of breath. Left leg remains swollen but it is less painful. OBJECTIVE: Vital Signs: Temperature 97.8 degrees, pulse 64, blood pressure 198/45, oxygen saturation is 98% on 2 L nasal cannula. General: He is alert, in no acute distress. Abdomen: Soft, nontender. Integument: Otherwise warm and dry. Extremities: His right leg looks good. He has his compression stocking in place. There is no real edema here. No pain. His left leg is swollen and quite tense. Cellulitis and erythema are improved from yesterday but there are some persistent chronic venous stasis changes here. Otherwise normal distal perfusion. Labs: Reviewed, nothing new other than a glucose of 177 this morning. He had a lower extremity ultrasound that shows a chronic appearing DVT of the left lower extremity. ASSESSMENT AND PLAN: An 81-year-old male with multiple medical issues including venous stasis and a history of a deep venous thrombosis in the left lower extremity. Ultrasound still demonstrates this. He does have flow. It is chronic appearing. The cellulitis is better. I have asked Yvrose to place an Unna boot back on his left lower extremity. He does have some new wounds here that were completely healed just a couple of weeks ago. Continue compression stockings on the right lower extremity. We will defer anticoagulation to Dr. Andino. I know he has got multiple medical issues and has been on off anticoagulation in the past. If reasonable from a medical standpoint, he may benefit from anticoagulation but I understand that this may be contraindicated. We will continue to follow along. cc: MD David Carreno MD
[2016-08-19] MEDS: PATIENT'S OWN MED SUBQ SCH ×3 (14:09→21:31)
[2016-08-19] MEDS: HUMULIN R SUBQ SCH ×4 (14:11→21:31)
[2016-08-19] MEDS: LOVENOX SUBQ SCH (17:15)
[2016-08-19] MEDS ORDERED: AMBIEN PO PRN (21:16)
[2016-08-19] MEDS: NORCO-7.5 PO PRN (21:27)
[2016-08-20] MEDS: PROTONIX IV SCH (00:21)
[2016-08-20] MEDS: PATIENT'S OWN MED SUBQ SCH (06:40)
[2016-08-20] MEDS: HUMULIN R SUBQ SCH (06:40)
[2016-08-20 07:35] VITALS: BP 120/54
[2016-08-20] MEDS: FLOMAX PO SCH ×2 (07:45→08:02)
[2016-08-20] MEDS: PRINZIDE 20/12.5MG PO SCH ×2 (07:45→08:02)
[2016-08-20] MEDS: ZYLOPRIM PO SCH ×2 (07:45→08:17)
[2016-08-20] MEDS: MIRALAX PO SCH ×2 (07:45→08:02)
[2016-08-20] MEDS: COREG PO SCH ×2 (07:46→08:01)
[2016-08-20] MEDS: ZOSYN 3.375 GM/NS 3.375 GM/50 ML IVPB IV SCH (07:46)
[2016-08-20] MEDS: DUONEB (A & A) INH PRN (07:52)
[2016-08-20] MEDS: LASIX IV SCH ×2 (07:56→08:02)
--- NOTE | 2016-08-20 18:14 | PROGRESS NOTE ---
DATE: 08/20/2016 SUBJECTIVE: He feels well. No pain in his leg. OBJECTIVE: No fevers overnight. No tachycardia. Erythema in his left leg is improved. He has an Unna boot in place. He has a chronic appearing DVT in the left lower extremity on the right. He has his compression stockings on and there is no cellulitis here. Otherwise he is alert.Abdomen: Obese and distended. Otherwise nontender. LABORATORY DATA: Reviewed his labs. There was nothing new today. ASSESSMENT/PLAN: An 81-year-old male well known to me with chronic deep venous thrombosis in the left lower extremity, venous stasis bilaterally. He has been started on low-dose anticoagulants by Dr. Andino. I agree with this. He has had bleeding in the past. This complicates the matter, but he also has chronic venous insufficiency and stasis bilaterally. We had a venous ulcer healed with Unna boots in the past but it quickly developed after stopping the Unna boot. We have re- initiated Unna boot therapy on the left. He has a graduated compression stocking on the right. He will see me back at [facility] in the next 1-2 weeks for followup of his wounds and continuation of the Unna boot therapy. Discussed with the patient and Dr. Andino. We will see him at that time. Sooner if condition worsens. cc: MD David Carreno MD
--- NOTE | 2016-08-20 22:05 | DISCHARGE SUMMARY ---
ADMISSION DATE: 08/17/2016 DISCHARGE DATE: 08/20/2016 DISCHARGING DIAGNOSIS: Atypical chest pain. SECONDARY DIAGNOSES: 1. Chronic venous stasis dermatitis with cellulitis. 2. Chronic deep vein thrombosis in the left leg. OTHER DIAGNOSES: 1. Morbid obesity. 2. Chronic kidney disease stage 3. 3. Coronary artery disease stable. 4. Type 2 diabetes on insulin pump. 5. Hypertension. 6. Hyperlipidemia. 7. Sleep apnea. 8. Chronic back pain due to spondylosis. CONSULTS: Dr. Nasrin Borjas BRIEF HISTORY: Please see the H and P that was done on 08/17/2016. In brief, he is an 81-year- old white gentleman who was admitted to the hospital basically with chest pain after shooting the pool table. He also has abdominal distention. He has also developed left leg swelling, redness and pain. HOSPITAL COURSE: Patient was stopped Effient from the previous open cholecystectomy. During this hospital course, he was ruled out for CT in serial cardiac enzymes. Abdominal distention was improved after giving MiraLAX. It was due to constipation. Chronic left leg venous stasis dermatitis. Patient was seen by wound care consult with Dr. Borjas. Patient was wrapped up with an Unna boot and venous Doppler showed chronic DVT in the left leg. He already had an IVC filter. In light of his risk factors, we started him on adjusted dose of Eliquis 2.5 mg p.o. b.i.d. The rest of the hospital course was uneventful. LABORATORIES: CBC: White cell count 7.3, hematocrit 35, platelets 167,000. SMA 7 sodium 135, potassium 5.3, chloride 95, BUN 52, creatinine 2.7, glucose 330, and A1c 7.9, calcium 8.5. Cardiac enzymes were normal. Urinalysis is clear. Venous ultrasound chronic DVT in the left leg. DISCHARGE INSTRUCTIONS: 1. Coreg 25 mg p.o. b.i.d. 2. Lisinopril/hydrochlorothiazide 20/12.5 daily. 3. Subcutaneous insulin pump. 4. Flomax 0.4 mg daily. 5. Lasix 40 mg daily. 6. Nebulizers as needed. 7. Allopurinol 100 mg daily. 8. Eliquis 2.5 mg p.o. b.i.d. 9. Discontinue Effient. 10. Follow up in my office next week. 11. Follow up with Dr. Borjas for wound care for Unna boot and maintenance care for diabetes in my office. cc: MD Nasrin Alexandra MD
--- NOTE | 2016-09-07 14:45 | PROVIDER DOCUMENTATION ---
This chart was entered by Idania Slaughter Scribe, acting as scribe for Heladio Shultz MD. HPI-Chest Pain <AndinoLuis Alberto - Last Filed: 09/04/16 19:02> - General Source: patient - History of Present Illness-CP Location: reports: substernal Chest Pain Radiation: reports: no radiation Quality of Pain: reports: aching Severity in ED: mild Onset/Duration: this morning Timing: resolved prior to arrival Similar Symptoms Previously?: No Recently Seen Here or By Another Healthcare Provider: No <Heladio Shultz - Last Filed: 09/07/16 14:44> - General Chief Complaint: Chest Pain Stated Complaint: sob Time Seen by Provider: 08/17/16 11:55 Allergies/Adverse Reactions: Patient Allergies Allergy/AdvReac Type Severity Reaction Status Date / Time No Known Allergies Allergy Verified 08/17/16 11:50 Home Medications: Home Medication List Medication Instructions Recorded Confirmed Last Taken Type Carvedilol [Coreg] 25 mg PO BID 02/15/12 08/18/16 10/09/15 08:00 History Lisinopril/Hydrochlorothiazide 1 each PO DAILY 02/15/12 08/18/16 10/09/15 07:00 History [Lisinopril-Hctz 20-12.5 mg Tab] Subcutaneous Insulin Pump [Insulin 1 each MC AC + HS 03/28/12 08/18/16 05/25/16 History Pump] Furosemide [Lasix] 40 mg PO DAILY #30 01/12/14 08/18/16 10/09/15 07:00 Rx Tamsulosin [Flomax] 0.4 mg PO DAILY #0 capsule 01/12/14 08/18/16 10/09/15 08:00 Rx Albuterol [Albuterol Neb] 2.5 mg INH Q4H PRN PRN 05/27/16 08/18/16 2 Days Ago History Allopurinol [Zyloprim] 100 mg PO DAILY #30 tablet 06/02/16 08/18/16 Unknown Rx Apixaban [Eliquis] 2.5 mg PO BID #60 tablet 08/20/16 Unknown Rx - History of Present Illness-CP Nature of Presenting Problem: 81 year old M presents to the ED with a cc of chest pain, nausea, and diaphoresis with an onset of this morning. Pt states that he was shooting pool this morning with some friends and developed chest pains, nausea, and diaphoresis lasting 2-3 minutes. PT states that he had his gallbladder 2 weeks ago. (Idania Slaughter) 81 year old M presents to the ED with a cc of chest pain, nausea, and diaphoresis with an onset of this morning. Pt states that he was shooting pool this morning with some friends and developed chest pains, nausea, and diaphoresis lasting 2-3 minutes. PT states that he had his gallbladder 2 weeks ago. (Heladio Shultz) Review of Systems - Adult - REVIEW OF SYSTEMS - ADULT Constitutional: denies: chills, fever Eyes: reports: no symptoms reported Ears, Nose, Mouth & Throat: reports: no symptoms reported Cardiovascular: reports: chest pain. denies: palpitations Respiratory: denies: cough, shortness of breath Gastrointestinal: reports: nausea. denies: vomiting Genitourinary: reports: no symptoms reported Musculoskeletal: reports: no symptoms reported Integumentary: reports: no symptoms reported Neurological: reports: no symptoms reported Psychiatric: reports: no symptoms reported Endocrine: reports: no symptoms reported Hematologic/Lymphatic: reports: no symptoms reported Allergic/Immunologic: reports: no symptoms reported All Other Systems: Reviewed and Negative <Heladio Shultz - Last Filed: 09/07/16 14:44> Past History - Adult - PAST MEDICAL HISTORY-ADULT Review of Records: reports: Nursing Assessment Review, Medications Reviewed Major Childhood Illnesses: reports: denies history Cardiovascular: reports: cardiac disease, CAD, CHF, HTN, hyperlipidemia, [place] Respiratory: reports: asthma, COPD Gastrointestinal: reports: cholelithiasis, 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) Genitourinary: reports: kidney disease Endocrine/Immune: reports: Diabetes - PRIOR SURGERIES/PROCEDURES Surgical/Procedure History: reports: cardiac stent, indwelling device ( luis fernando filter ), 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, ), other (cardiac catheter) - IMMUNIZATION STATUS Childhood Immunizations: UTD Flu Vaccine: UTD - SOCIAL HISTORY Smoking: non-smoker Substance Use: none/never Alcohol Use Frequency: never <Heladio Shultz - Last Filed: 09/07/16 14:44> Physical Exam-General - PHYSICAL EXAM-ADULT Initial Vital Signs Reviewed: Yes - CONSTITUTIONAL General Appearance: appears well, alert, no apparent distress - RESPIRATORY Respiratory: chest non-tender, lungs clear, normal breath sounds - CARDIOVASCULAR Cardiovascular: normal peripheral pulses, regular rate, rhythm, no edema - GASTROINTESTINAL (ABDOMEN) Abdominal Exam: distended (firm) - SKIN Integumentary: other (chronic venous stasis changes) - PSYCHIATRIC Psych/Mental Status: normal mood/affect, normal thought content, normal thought process, oriented x 3 <Heladio Shultz - Last Filed: 09/07/16 14:44> Progress - PLAN OF CARE/RESULTS Result Diagrams: 08/18/16 07:15 08/18/16 07:15 <Luis Alberto Andino - Last Filed: 09/04/16 19:02> - PLAN OF CARE/RESULTS Result Diagrams: 08/18/16 07:15 08/18/16 07:15 - EKG 1 Time of EKG reading by physician:: 11:40 EKG Read and Signed by:: Heladio Shultz EKG Interpretation (*Must complete 3 of following elements*): Normal Rate: 75 Rhythm: sinus rhythm with premature supraventricular complexes [place]: normal - CONSULTS/PCP/HOSPITALIST Notification #1 *Consult/PCP/Hospitalist*: Dr. Andino(ER MD) Time Discussed: 15:05 Consult Disposition: Admit <Heladio Shultz - Last Filed: 09/07/16 14:44> - PLAN OF CARE/RESULTS Progress/Plan/Lab Results: Orders Category Date Time Status Admit - [facility] Routine AdmDCTranf 08/17/16 15:15 Ordered Activity - Bed Rest with BRP ORDERED Care 08/17/16 15:15 Inactive Cardiac Monitoring DIRECTED Care 08/17/16 11:54 Completed Saline Loc NOW Care 08/17/16 11:54 Completed Vital Signs Order ROUTINE Care 08/17/16 15:15 Inactive CHEST-PORTABLE [RAD] Stat Exams 08/17/16 11:55 Completed KUB ABDOMEN [RAD] Stat Exams 08/17/16 12:02 Completed AMYLASE [CHEM] Stat Lab 08/17/16 13:11 Completed CBC WITH ELECTRONIC DIFF [HEME] Stat Lab 08/17/16 13:11 Completed CK PROFILE [SP CHEM] Stat Lab 08/17/16 13:11 Completed CK PROFILE [SP CHEM] Stat Lab 08/17/16 16:20 Completed COMPREHENSIVE METABOLIC PANEL [CHEM] Stat Lab 08/17/16 13:11 Completed LIPASE [CHEM] Stat Lab 08/17/16 13:11 Completed MAGNESIUM [CHEM] Stat Lab 08/17/16 13:11 Completed PRO B-NATRIURETIC PEPTIDE Stat Lab 08/17/16 13:11 Completed PROTIME WITH INR [COAG] Stat Lab 08/17/16 13:11 Completed PTT [COAG] Stat Lab 08/17/16 13:11 Completed TROPONIN T Stat Lab 08/17/16 13:11 Completed TROPONIN T Stat Lab 08/17/16 16:20 Completed Acetaminophen [Tylenol] Med 08/17/16 15:15 Discontinued 650 mg PO Q6H PRN PRN Hydromorphone [Dilaudid] Med 08/17/16 15:15 Discontinued 2 mg IM Q4H PRN PRN Ondansetron [Zofran] Med 08/17/16 15:15 Discontinued 4 mg IV Q4H PRN PRN EKG [EKG] Stat Ther 08/17/16 11:54 Draft EKG [EKG] Stat Ther 08/17/16 15:52 Completed Transfer/Admit Order [TRANSFER] Routine Transfer 08/17/16 15:12 Completed Laboratory Tests 08/17/16 08/17/16 08/17/16 13:11 13:11 13:11 WBC 8.85 RBC 4.16 L Hgb 12.5 L Hct 37.1 L MCV 89.2 MCH 30.0 MCHC 33.7 RDW Std Deviation 12.9 Plt Count 206 MPV 10.5 H Immature Gran % (Auto) 0.2 Neut % (Auto) 54.4 Lymph % (Auto) 29.8 [place] % (Auto) 10.4 H Eos % (Auto) 4.6 Baso % (Auto) 0.6 Immature Gran # (Auto) 0.02 Neut # (Auto) 4.81 Lymph # (Auto) 2.64 [place] # (Auto) 0.92 H Eos # (Auto) 0.41 Baso # (Auto) 0.05 PT INR PTT (Actin FS) Sodium 138 Potassium 4.5 Chloride 96 L Carbon Dioxide 25 Anion Gap 17 BUN 46 H Creatinine 2.4 H Estimated GFR/1.73 m2 26 BUN/Creatinine Ratio 19 Glucose 81 POC Glucose Estimat Average Glucose Hemoglobin A1c Calculated Osmolality 287 Calcium 8.8 Magnesium 1.9 Total Bilirubin 0.38 AST 20 ALT 13 Alkaline Phosphatase 99 Creatine Kinase 171 Troponin T Lsx-R-Orpjixqnmsd Pept Total Protein 7.3 Albumin 3.6 Globulin 3.7 Albumin/Globulin Ratio 1.0 Amylase 5 L Lipase 7 L Urine Source Urine Color Urine Turbidity Urine pH Ur Specific [place] Urine Protein Ur Glucose (Stick) Ur Ketones (Stick) Urine Blood Urine Nitrite Urine Bilirubin Urobilinogen Dipstick Urine Leukocytes Urine WBC (Auto) Urine RBC (Auto) U Epithel Cells (Auto) Urine Bacteria (Auto) 08/17/16 08/17/16 08/17/16 13:11 13:11 13:11 WBC RBC Hgb Hct MCV MCH MCHC RDW Std Deviation Plt Count MPV Immature Gran % (Auto) Neut % (Auto) Lymph % (Auto) [place] % (Auto) Eos % (Auto) Baso % (Auto) Immature Gran # (Auto) Neut # (Auto) Lymph # (Auto) [place] # (Auto) Eos # (Auto) Baso # (Auto) PT 10.6 INR 1.01 PTT (Actin FS) 28.5 Sodium Potassium Chloride Carbon Dioxide Anion Gap BUN Creatinine Estimated GFR/1.73 m2 BUN/Creatinine Ratio Glucose POC Glucose Estimat Average Glucose Hemoglobin A1c Calculated Osmolality Calcium Magnesium Total Bilirubin AST ALT Alkaline Phosphatase Creatine Kinase Troponin T 0.027 Qnq-W-Gwtxbcquyle Pept 258 Total Protein Albumin Globulin Albumin/Globulin Ratio Amylase Lipase Urine Source Urine Color Urine Turbidity Urine pH Ur Specific [place] Urine Protein Ur Glucose (Stick) Ur Ketones (Stick) Urine Blood Urine Nitrite Urine Bilirubin Urobilinogen Dipstick Urine Leukocytes Urine WBC (Auto) Urine RBC (Auto) U Epithel Cells (Auto) Urine Bacteria (Auto) 08/17/16 08/17/16 08/17/16 15:16 16:20 16:20 WBC RBC Hgb Hct MCV MCH MCHC RDW Std Deviation Plt Count MPV Immature Gran % (Auto) Neut % (Auto) Lymph % (Auto) [place] % (Auto) Eos % (Auto) Baso % (Auto) Immature Gran # (Auto) Neut # (Auto) Lymph # (Auto) [place] # (Auto) Eos # (Auto) Baso # (Auto) PT INR PTT (Actin FS) Sodium Potassium Chloride Carbon Dioxide Anion Gap BUN Creatinine Estimated GFR/1.73 m2 BUN/Creatinine Ratio Glucose POC Glucose 104 D Estimat Average Glucose Hemoglobin A1c Calculated Osmolality Calcium Magnesium Total Bilirubin AST ALT Alkaline Phosphatase Creatine Kinase 153 Troponin T 0.022 Cep-Z-Snlmebannel Pept Total Protein Albumin Globulin Albumin/Globulin Ratio Amylase Lipase Urine Source Urine Color Urine Turbidity Urine pH Ur Specific [place] Urine Protein Ur Glucose (Stick) Ur Ketones (Stick) Urine Blood Urine Nitrite Urine Bilirubin Urobilinogen Dipstick Urine Leukocytes Urine WBC (Auto) Urine RBC (Auto) U Epithel Cells (Auto) Urine Bacteria (Auto) 08/17/16 08/18/16 08/18/16 17:50 00:30 07:15 WBC RBC Hgb Hct MCV MCH MCHC RDW Std Deviation Plt Count MPV Immature Gran % (Auto) Neut % (Auto) Lymph % (Auto) [place] % (Auto) Eos % (Auto) Baso % (Auto) Immature Gran # (Auto) Neut # (Auto) Lymph # (Auto) [place] # (Auto) Eos # (Auto) Baso # (Auto) PT INR PTT (Actin FS) Sodium 135 L Potassium 5.3 H D Chloride 95 L Carbon Dioxide 21 L Anion Gap 19 BUN 52 H Creatinine 2.7 H Estimated GFR/1.73 m2 23 BUN/Creatinine Ratio 19 Glucose 335 H D POC Glucose 277 H D Estimat Average Glucose Hemoglobin A1c Calculated Osmolality 297 Calcium 8.5 L Magnesium Total Bilirubin AST ALT Alkaline Phosphatase Creatine Kinase Troponin T Wez-D-Yhfycqnerfq Pept Total Protein Albumin Globulin Albumin/Globulin Ratio Amylase Lipase Urine Source CLEAN CATCH Urine Color YELLOW Urine Turbidity CLEAR Urine pH 5.0 Ur Specific [place] 1.011 Urine Protein NEGATIVE Ur Glucose (Stick) NEGATIVE Ur Ketones (Stick) NEGATIVE Urine Blood NEGATIVE Urine Nitrite NEGATIVE Urine Bilirubin NEGATIVE Urobilinogen Dipstick NORMAL Urine Leukocytes MODERATE A Urine WBC (Auto) <10 Urine RBC (Auto) <10 U Epithel Cells (Auto) <10 Urine Bacteria (Auto) NEGATIVE 08/18/16 08/18/16 08/18/16 07:15 07:15 07:15 WBC RBC Hgb Hct MCV MCH MCHC RDW Std Deviation Plt Count MPV Immature Gran % (Auto) Neut % (Auto) Lymph % (Auto) [place] % (Auto) Eos % (Auto) Baso % (Auto) Immature Gran # (Auto) Neut # (Auto) Lymph # (Auto) [place] # (Auto) Eos # (Auto) Baso # (Auto) PT INR PTT (Actin FS) Sodium Potassium Chloride Carbon Dioxide Anion Gap BUN Creatinine Estimated GFR/1.73 m2 BUN/Creatinine Ratio Glucose POC Glucose Estimat Average Glucose 180 Hemoglobin A1c 7.9 H Calculated Osmolality Calcium Magnesium Total Bilirubin AST ALT Alkaline Phosphatase Creatine Kinase Troponin T 0.046 D Wsh-J-Eecinqamwon Pept 261 Total Protein Albumin Globulin Albumin/Globulin Ratio Amylase Lipase Urine Source Urine Color Urine Turbidity Urine pH Ur Specific [place] Urine Protein Ur Glucose (Stick) Ur Ketones (Stick) Urine Blood Urine Nitrite Urine Bilirubin Urobilinogen Dipstick Urine Leukocytes Urine WBC (Auto) Urine RBC (Auto) U Epithel Cells (Auto) Urine Bacteria (Auto) 08/18/16 08/18/16 08/18/16 07:15 07:15 07:44 WBC 7.33 RBC 3.94 L Hgb 11.7 L Hct 35.4 L MCV 89.8 MCH 29.7 MCHC 33.1 RDW Std Deviation 12.7 Plt Count 167 MPV 10.4 Immature Gran % (Auto) 0.3 Neut % (Auto) 51.9 Lymph % (Auto) 29.7 [place] % (Auto) 13.8 H Eos % (Auto) 3.8 Baso % (Auto) 0.5 Immature Gran # (Auto) 0.02 Neut # (Auto) 3.80 Lymph # (Auto) 2.18 [place] # (Auto) 1.01 H Eos # (Auto) 0.28 Baso # (Auto) 0.04 PT INR PTT (Actin FS) Sodium Potassium Chloride Carbon Dioxide Anion Gap BUN Creatinine Estimated GFR/1.73 m2 BUN/Creatinine Ratio Glucose POC Glucose 355 H Estimat Average Glucose Hemoglobin A1c Calculated Osmolality Calcium Magnesium Total Bilirubin AST ALT Alkaline Phosphatase Creatine Kinase 156 Troponin T Gax-E-Crermiwpfli Pept Total Protein Albumin Globulin Albumin/Globulin Ratio Amylase Lipase Urine Source Urine Color Urine Turbidity Urine pH Ur Specific [place] Urine Protein Ur Glucose (Stick) Ur Ketones (Stick) Urine Blood Urine Nitrite Urine Bilirubin Urobilinogen Dipstick Urine Leukocytes Urine WBC (Auto) Urine RBC (Auto) U Epithel Cells (Auto) Urine Bacteria (Auto) 08/18/16 08/18/16 08/18/16 07:54 11:53 14:31 WBC RBC Hgb Hct MCV MCH MCHC RDW Std Deviation Plt Count MPV Immature Gran % (Auto) Neut % (Auto) Lymph % (Auto) [place] % (Auto) Eos % (Auto) Baso % (Auto) Immature Gran # (Auto) Neut # (Auto) Lymph # (Auto) [place] # (Auto) Eos # (Auto) Baso # (Auto) PT INR PTT (Actin FS) Sodium Potassium Chloride Carbon Dioxide Anion Gap BUN Creatinine Estimated GFR/1.73 m2 BUN/Creatinine Ratio Glucose POC Glucose 346 H 302 H Estimat Average Glucose Hemoglobin A1c Calculated Osmolality Calcium Magnesium Total Bilirubin AST ALT Alkaline Phosphatase Creatine Kinase 177 Troponin T Nst-L-Zeojvgwedrm Pept Total Protein Albumin Globulin Albumin/Globulin Ratio Amylase Lipase Urine Source Urine Color Urine Turbidity Urine pH Ur Specific [place] Urine Protein Ur Glucose (Stick) Ur Ketones (Stick) Urine Blood Urine Nitrite Urine Bilirubin Urobilinogen Dipstick Urine Leukocytes Urine WBC (Auto) Urine RBC (Auto) U Epithel Cells (Auto) Urine Bacteria (Auto) 08/18/16 08/18/16 08/18/16 16:56 20:08 21:56 WBC RBC Hgb Hct MCV MCH MCHC RDW Std Deviation Plt Count MPV Immature Gran % (Auto) Neut % (Auto) Lymph % (Auto) [place] % (Auto) Eos % (Auto) Baso % (Auto) Immature Gran # (Auto) Neut # (Auto) Lymph # (Auto) [place] # (Auto) Eos # (Auto) Baso # (Auto) PT INR PTT (Actin FS) Sodium Potassium Chloride Carbon Dioxide Anion Gap BUN Creatinine Estimated GFR/1.73 m2 BUN/Creatinine Ratio Glucose POC Glucose 115 H D 143 H Estimat Average Glucose Hemoglobin A1c Calculated Osmolality Calcium Magnesium Total Bilirubin AST ALT Alkaline Phosphatase Creatine Kinase 169 Troponin T Sns-A-Awpaszgxrhg Pept Total Protein Albumin Globulin Albumin/Globulin Ratio Amylase Lipase Urine Source Urine Color Urine Turbidity Urine pH Ur Specific [place] Urine Protein Ur Glucose (Stick) Ur Ketones (Stick) Urine Blood Urine Nitrite Urine Bilirubin Urobilinogen Dipstick Urine Leukocytes Urine WBC (Auto) Urine RBC (Auto) U Epithel Cells (Auto) Urine Bacteria (Auto) 08/19/16 08/19/16 08/19/16 04:48 11:44 20:12 WBC RBC Hgb Hct MCV MCH MCHC RDW Std Deviation Plt Count MPV Immature Gran % (Auto) Neut % (Auto) Lymph % (Auto) [place] % (Auto) Eos % (Auto) Baso % (Auto) Immature Gran # (Auto) Neut # (Auto) Lymph # (Auto) [place] # (Auto) Eos # (Auto) Baso # (Auto) PT INR PTT (Actin FS) Sodium Potassium Chloride Carbon Dioxide Anion Gap BUN Creatinine Estimated GFR/1.73 m2 BUN/Creatinine Ratio Glucose POC Glucose 177 H 138 H 170 H Estimat Average Glucose Hemoglobin A1c Calculated Osmolality Calcium Magnesium Total Bilirubin AST ALT Alkaline Phosphatase Creatine Kinase Troponin T Oai-F-Iexcjdlzfum Pept Total Protein Albumin Globulin Albumin/Globulin Ratio Amylase Lipase Urine Source Urine Color Urine Turbidity Urine pH Ur Specific [place] Urine Protein Ur Glucose (Stick) Ur Ketones (Stick) Urine Blood Urine Nitrite Urine Bilirubin Urobilinogen Dipstick Urine Leukocytes Urine WBC (Auto) Urine RBC (Auto) U Epithel Cells (Auto) Urine Bacteria (Auto) 08/20/16 05:42 WBC RBC Hgb Hct MCV MCH MCHC RDW Std Deviation Plt Count MPV Immature Gran % (Auto) Neut % (Auto) Lymph % (Auto) [place] % (Auto) Eos % (Auto) Baso % (Auto) Immature Gran # (Auto) Neut # (Auto) Lymph # (Auto) [place] # (Auto) Eos # (Auto) Baso # (Auto) PT INR PTT (Actin FS) Sodium Potassium Chloride Carbon Dioxide Anion Gap BUN Creatinine Estimated GFR/1.73 m2 BUN/Creatinine Ratio Glucose POC Glucose 136 H Estimat Average Glucose Hemoglobin A1c Calculated Osmolality Calcium Magnesium Total Bilirubin AST ALT Alkaline Phosphatase Creatine Kinase Troponin T Bip-X-Ysfglepophl Pept Total Protein Albumin Globulin Albumin/Globulin Ratio Amylase Lipase Urine Source Urine Color Urine Turbidity Urine pH Ur Specific [place] Urine Protein Ur Glucose (Stick) Ur Ketones (Stick) Urine Blood Urine Nitrite Urine Bilirubin Urobilinogen Dipstick Urine Leukocytes Urine WBC (Auto) Urine RBC (Auto) U Epithel Cells (Auto) Urine Bacteria (Auto) (Heladio Shultz) Departure - Departure Time of Disposition Decision: 21:49 Certified Medical Emergency: Emergent - Critical Care Note This patient required my direct & personal management of CC.: No <Luis Alberto Andino - Last Filed: 09/04/16 19:02> - Departure Time of Disposition Decision: 21:50 Certified Medical Emergency: Emergent - Critical Care Note This patient required my direct & personal management of CC.: No <Heladio Shultz - Last Filed: 09/07/16 14:44> - Departure DIAGNOSIS: Chest pain, Bilateral upper abdominal discomfort Disposition: ADMITTED INPATIENT 09 Condition: Good This chart was documented by the indicated scribe, (Idania Slaughter Scribe) and accurately reflects the services I performed and decisions made by me, Heladio Shultz MD, as attested by the provider's signature.
== END 2016-08-20 09:21 | disposition home or self-care (01) ==
LOC: ED 11:27 → EDIPHOLD 11:27 → OBSVTOIN 15:38 → 3S 08-18 11:00
PROVIDERS: ADMIT Internal Medicine; ATTEND Internal Medicine

== ENCOUNTER 2018-08-06 11:40 | Observation (INO) ==
[2018-08-06] MEDS ORDERED: ASPIRIN PO ONE (11:50)
[2018-08-06] MEDS ORDERED: ASPIRIN PR ONE (11:50)
[2018-08-06 11:58] LABS: BASO# 0.05 X1000 (0.0-0.2); BASO% 0.8 % (0.0-0.8); EOS# 0.42 X1000 (0.0-0.7); EOS% 7.1 % (0.0-10.0); HEMATOCRIT 37.2 % (42.0-52.0); HEMOGLOBIN 12.5 g/dL (14.0-18.0); IMM GRAN# 0.02 X1000 (0.0-0.04); IMM GRAN% 0.3 % (0.0-0.5); LYMPH# 2.33 X1000 (1.2-3.4); LYMPH% 39.4 % (20.5-51.1); MCHC 33.6 g/dL (33-37); MCV 89.2 FL (81-99); MONO# 0.41 X1000 (0.11-0.59); MONO% 6.9 % (1.7-9.3); MPV 10.4 FL (7.4-10.4); NEUT# 2.68 X1000 (1.4-6.5); NEUT% 45.5 % (42.2-75.2); PLT 172 X1000 (130-400); RBC 4.17 XMIL (4.7-6.1); RDW 12.3 % (11.5-14.5); WBC 5.91 X1000 (4.8-10.8)
[2018-08-06] MEDS ORDERED: ZOFRAN IV ONE ×2 (12:01→13:08)
[2018-08-06] MEDS ORDERED: DUONEB (A & A) INH ONE (12:01)
[2018-08-06 12:07] LABS: INR 1.17; PROTIME 15.5 Seconds (11.0-16.0)
[2018-08-06 12:08] LABS: PTT 38.1 Seconds (22.3-41.8)
[2018-08-06 12:09] LABS: SODIUM 136 mmol/L (136-145)
[2018-08-06 12:10] LABS: AGAP 10; BUN 39 mg/dL (8-22); CALCIUM 8.7 mg/dL (8.8-10.2); CHLORIDE 102 mmol/L (98-107); COSMO 292; CREATININE 1.8 mg/dL (0.7-1.2); GLUCOSE 285 mg/dL (70-104); POTASSIUM 5.2 mmol/L (3.5-5.1); TCO2 24 mmol/L (25-35); TOTAL PROTEIN 7.6 g/dL (6.3-8.3)
[2018-08-06 12:11] LABS: ALKALINE PHOSPHATASE 102 U/L (32-122); CK PROFILE 190 U/L (24-204); GOT 16 U/L (10-34); GPT 12 U/L (10-44)
--- NOTE | 2018-08-06 12:52 | Diag Imaging Result Doc PS360 ---
EXAM: CHEST-2 VIEWS 08/06/2018 HISTORY: chest pain TECHNIQUE: Erect AP and lateral chest COMMENT: The inspiration is suboptimal. There are no focal opacities. Considering differences in inspiration there has been no significant change since the previous study of 02/21/2018. IMPRESSION: No acute disease. Electronically signed by Maykel Lyons 08/06/2018 12:50 PM
[2018-08-06 12:54] LABS: BE -4.2 mmoll (-3.0-3.0); BLOOD TYPE ARTERIAL; HCO3-(ACT) 21.6 mmoll (20.0-26.0); METHB 0.6 % (0.0-1.5); O2(CT) 16.5 mL/dL (15.0-23.0); O2HB 94.4 % (95.0-99.0); PCO2(98.6) 38 mmHg (35-45); PO2(98.6) 70 mmHg (60-100); SAMPLE BLOOD; SAO2 96.7 % (95.0-100.0); THB 12.4 g/dL (11.5-17.4); pH(98.6) 7.35 (7.35-7.45)
[2018-08-06 12:59] LABS: ALLEN TEST YES; MODALITY ROOM AIR
[2018-08-06] MEDS ORDERED: MORPHINE IV ONE ×2 (13:08→15:07)
--- NOTE | 2018-08-06 13:37 | Diag Imaging Result Doc PS360 ---
EXAM: KUB ABDOMEN 08/06/2018 HISTORY: PAIN TECHNIQUE: KUB COMMENT: There is stool throughout the colon. The small bowel and stomach are not distended. There is a vena cava filter. There is a surgical clip in the right upper quadrant. There is no evidence of organomegaly or mass. Compared to 08/17/2016 the quantity of stool in the colon is slightly less. IMPRESSION: Constipation. Electronically signed by Maykel Lyons 08/06/2018 1:35 PM
[2018-08-06] MEDS ORDERED: NS 1,000 ML IV ONE (16:20)
[2018-08-06] MEDS ORDERED: ZOFRAN ODT PO PRN (16:20)
[2018-08-06] MEDS ORDERED: NITROGLYCERIN SL PRN (18:23)
[2018-08-06] MEDS: MORPHINE IV PRN ×2 (18:31→22:47)
[2018-08-06] MEDS ORDERED: ALBUTEROL NEB INH PRN (19:16)
[2018-08-06] MEDS: DUONEB (A & A) INH SCH ×2 (19:22→23:30)
--- NOTE | 2018-08-06 20:48 | HISTORY AND PHYSICAL ---
CHIEF COMPLAINT: Chest pain. HISTORY OF PRESENT ILLNESS: This is an 83-year-old gentleman with CAD and obesity, hypertension, and DVT history, but status post size IVC, who presents with chest pain. He says the pain is very pressure-like in the center of his chest and radiating to his back, down his left arm and into his armpit. Unclear, if this is like previous CAD, but he has had CAD status post 5 stents. 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 He is taking Eliquis though, at least it has been prescribed. I am not sure if he is still taking it, but we will confirm his medicines. But, in any case, patient was evaluated in the ER. Workup was unremarkable, but he has CAD and risk factors and chest pain, so he was placed in observation for chest pain. PAST MEDICAL HISTORY: 1. Morbid obesity. 2. Chronic renal failure stage 3. His creatinine today is 1.8 with a GFR that places him 22, stage 4. 3. Type 2 diabetes, on an insulin pump, which is not working. 4. Hypertension. 5. Hyperlipidemia. 6. Sleep apnea. 7. Chronic back pain. 8. History of DVT in the left leg for which he is not getting treatment. I want to say I recognize him and he refuses anticoagulation because of commercials on TV putting at risk for bleeding, but he is status post IVC filter, although he says it is 10 years ago. I am not entirely sure about that. PAST SURGICAL HISTORY: 1. Cholecystectomy. 2. Left foot surgery. 3. Cataract surgery. 4. Laparotomy. 5. IVC filter. 6. PCI. 7. AV fistula repair in the groin. ALLERGIES: No known drug allergies. MEDICATIONS: Reportedly takes albuterol q.4. Coreg 25 b.i.d., gabapentin 300 daily, lisinopril/hydrochlorothiazide 20/12.5 daily, apixaban and Lasix. SOCIAL HISTORY: No smoking, alcohol. He is , 6 children. 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 FAMILY HISTORY: CAD in his father, at 40. Mother, brain aneurysm at 39. REVIEW OF SYSTEMS: No weight loss. No appetite change. Cardiovascular as described. Pulmonary as described. GI as described. No dysuria. Otherwise negative times a 10 point review of systems. PHYSICAL EXAMINATION: VITAL SIGNS: Blood pressure is 166/62, heart rate of 50, respiratory rate 22, temperature 98.2, 98 percent on room air. HEENT: On his eye exam, pupils equal, round, reactive to light. Extraocular movements were intact. Ear, nose and throat exam, he had moist mucous membranes. NECK: Exam was supple. CARDIOVASCULAR: Regular rate and rhythm. PULMONARY: Bilateral breath sounds, clear to auscultation. GI: Soft, nontender, nondistended. Bowel sounds are positive. Rotund. He has a healed midline incision. No hernia noted. NEUROLOGICAL: Nonfocal. MUSCULOSKELETAL: Is 4/5 in all 4 extremities. Trace edema. A little bit more on the left than the right and he has brawny chronic venous stasis changes on both sides, but no evidence of erythema. ASSESSMENT: An 83-year-old, white male, with history of coronary artery disease, chronic obstructive pulmonary disease, presenting with chest pain with significant risk factors including known coronary artery disease, diabetes, hypertension, dyslipidemia, but he is on anticoagulation. PROBLEM LIST: 1. Chest pain. We will do serial cardiac enzymes, EKG is really unremarkable at this point. Troponins are thus far negative. I will attempt to pursue an echo and get a Cardiology opinion. It is the weekend, so we will not be able to get a perfusion scan, although he had a perfusion scan in January, which was about 6 months ago and it was negative so we may just need to rule out. I do not see an echo. He had an echo in 2016, but I will get one in the morning. I guess per recommendations of Dr. Hinojosa, if he thinks we do not need it, then we will not necessarily need it. 2. Diabetes. We will do sliding scale. Check A1c. His insulin pump is not working at this time. 3. Hypertension. We will continue to monitor closely. Adjust medications accordingly. 4. Chronic renal failure. Aware of diagnosis. We will continue to monitor. Be careful with any nephrotoxic drugs. I believe his kidney function is at baseline, and his kidney function is actually a little bit better than usual, so we will continue his lisinopril and hydrochlorothiazide because it has been a medication he has been on previously. DISPOSITION: If stable and Dr. Hinojosa feels stable, anticipate possible discharge tomorrow, but at the discretion of Cardiology. cc: Anup Pickard MD
[2018-08-06] MEDS ORDERED: TYLENOL PM PO SCH (21:00)
[2018-08-06] MEDS: ELIQUIS PO SCH (22:47)
[2018-08-06] MEDS: NEURONTIN PO SCH (22:47)
[2018-08-06] MEDS: HUMALOG SUBQ SCH (23:04)
[2018-08-06] MEDS ORDERED: TYLENOL PO ONE (23:09)
[2018-08-06] MEDS ORDERED: BENADRYL PO ONE (23:09)
[2018-08-07] MEDS: HUMALOG SUBQ SCH (06:46)
[2018-08-07] MEDS: MORPHINE IV PRN (06:50)
[2018-08-07] MEDS: HUMALOG (PARKWAY) SUBQ SCH ×2 (07:25→10:50)
[2018-08-07] MEDS: DUONEB (A & A) INH SCH ×5 (08:20→23:06)
[2018-08-07 08:26] LABS: BASO# 0.04 X1000 (0.0-0.2); BASO% 0.7 % (0.0-0.8); EOS# 0.41 X1000 (0.0-0.7); EOS% 7.1 % (0.0-10.0); HEMATOCRIT 34.3 % (42.0-52.0); HEMOGLOBIN 11.2 g/dL (14.0-18.0); IMM GRAN# 0.02 X1000 (0.0-0.04); IMM GRAN% 0.3 % (0.0-0.5); LYMPH% 36.4 % (20.5-51.1); MCH 29.4 PG (27-31); MCHC 32.7 g/dL (33-37); MONO# 0.44 X1000 (0.11-0.59); MONO% 7.6 % (1.7-9.3); MPV 11.1 FL (7.4-10.4); NEUT# 2.76 X1000 (1.4-6.5); NEUT% 47.9 % (42.2-75.2); PLT 164 X1000 (130-400); RBC 3.81 XMIL (4.7-6.1); RDW 12.4 % (11.5-14.5); WBC 5.77 X1000 (4.8-10.8)
[2018-08-07 08:55] LABS: CALCIUM 8.1 mg/dL (8.8-10.2); CREATININE 1.7 mg/dL (0.7-1.2); HEMOGLOBIN A1C 8.7 % (4.8-6.0); POTASSIUM 5.1 mmol/L (3.5-5.1)
[2018-08-07] MEDS ORDERED: PRINZIDE 20/12.5MG PO SCH (09:00)
[2018-08-07] MEDS ORDERED: HYDROCHLOROTHIAZIDE PO SCH (09:00)
[2018-08-07] MEDS: PRINIVIL PO SCH (10:49)
[2018-08-07] MEDS: ASPIRIN EC PO SCH (10:49)
[2018-08-07] MEDS: LASIX PO SCH (10:49)
[2018-08-07] MEDS: ELIQUIS PO SCH ×2 (10:49→23:13)
--- NOTE | 2018-08-07 14:27 | CARDIOLOGY CONSULTATION ---
DATE: 08/07/2018 CONSULTATION REQUESTED BY: Hospitalist Service Dr. Pickard. INDICATION: Chest pain. HISTORY: 83-year-old, obese male who presented to the emergency room yesterday at about 11 in the morning stating that he had been at a [employer] and while he was walking there he suddenly developed discomfort in the left anterior chest, the left side of the neck, felt very weak and short of breath. This lasted for about 3 minutes however he felt very uneasy about it and decided to seek evaluation in the emergency room. He was seen in the ER. They did a chest x-ray that shows no acute disease. EKG done there shows no acute ischemic changes. There is sinus bradycardia rate 51 beats per minute. Another EKG that was done at 11:43 in the morning shows sinus bradycardia with just artifact. Subsequent EKG showed just sinus bradycardia, rate 45 beats per minute. The patient says that he is not having anymore pain. I am seeing him at about 2 p.m. on August 07. He says that for a few days or weeks he has been feeling increasingly more dyspneic. He has some chronic swelling of the lower extremities, brawny edema. He has not experienced dizziness or syncope. PAST HISTORY: Positive for severe coronary heart disease with multiple stents placed in the past. He has had coronary interventions to LAD, to diagonal branch. The last intervention I believe was probably in 2009 or so. The patient has a longstanding history of diabetes mellitus and he is on insulin pump. He has chronic kidney disease probably stage 3A or 3B. The patient has had previous deep venous thrombosis in the left leg and in 2009 they deployed an inferior vena cava filter. 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 He has been found to have significant venous reflux in both legs more so on the left. He has long-term hypertension, long-term hyperlipidemia, he is morbidly obese. His body mass index is 42. He has a Pickwickian appearance. He sleeps with a CPAP mask at home. He has been told that he needed to use oxygen all the time. However his oxygen concentrator broke and he has not been able to have any extra oxygen at home. SURGICAL HISTORY: Includes cholecystectomy, cataract surgery. Reportedly the fistula in the groin has been repaired but it was still patent when checked by Dr. Borjas about 2 years ago. 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 He has been to his for 63 years. He has 6 children. He quit smoking many years ago. Not a drinker. FAMILY HISTORY: Noncontributory for heart disease. HOME MEDICATIONS: At the time of this dictation included albuterol inhaler, Apixaban 2.5 twice a day, carvedilol 25 mg twice a day, furosemide 40 daily, gabapentin 300 at bedtime, lisinopril 20/12.5 daily. ALLERGIES: He reports no allergies. REVIEW OF SYSTEMS: Is chronically tired. He has limit ability to ambulate. He gets short of breath very easily. He has had bouts of angina before. Unfortunately he does not carry his nitroglycerin with him all the time. He sees Dr. Brenton Andino as primary medical doctor. He has seen Dr. Davon Box as primary power manager. PHYSICAL EXAMINATION: Vital signs: Blood pressure is 115/86, temperature 98.3 degrees, pulse 53, respirations 18. He is awake, alert, oriented, in no distress. He is obese. HEENT: Unremarkable. Chest: Clear to auscultation and percussion. Heart: Sounds are regular rhythmic. I do not hear a gallop or murmur. Abdomen: Very obese, nontender. Extremities: Showed actually very good dorsalis pedis pulses bilaterally. 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 Necrobiosis lipoidica diabeticorum. Neurological: He moved 4 extremities, followed commands. LAB: Blood work today hemoglobin 11.2, hematocrit 34.3, sodium 139, potassium 5.1, BUN 36, creatinine 1.7. IMPRESSION: 1. Patient who presents with chest pain short lasting. This may be angina pectoris or could be noncardiac pain. 2. Morbid obesity. 3. Sleep apnea syndrome. 4. History of severe coronary heart disease. Multiple stents in the past. 5. History of deep venous thrombosis with inferior vena cava filter in the past. 6. Chronic kidney disease. 7. Long-term diabetes mellitus on insulin pump. RECOMMENDATION: At this time I would suggest to obtain a 2D echocardiogram since he has already been evaluated in the hospital back in January 2018 by means of a stress test that showed no evidence of ischemia. Given the fact that his EKG shows no ischemia, his troponins are negative and his proBNP is not significantly elevated it is 864 being normal 450. I would suggest to do an echocardiogram. If the echocardiogram is normal then assuming that the patient is having no further symptoms I would suggest to let him go home and follow up with the usual physicians who are Dr. Brenton Andino and Dr. Davon Box. I would strongly recommend to consider referring him to peer specialist for determination of need for long-term oxygen therapy. cc: Alfonso Hinojosa MD
--- NOTE | 2018-08-07 16:58 | PROGRESS NOTE ---
DATE: 08/07/2018 SUBJECTIVE: The patient has no major complaints. OBJECTIVE: Vital Signs: Blood pressure was 115/86, heart rate of 56, respiratory rate of 18, temperature 98.3, 99% on 1 L. Cardiovascular: Regular rate and rhythm. Pulmonary: Bilateral breath sounds clear to auscultation. Gastrointestinal: Soft, nontender, nondistended. Bowel sounds are positive. He has a very protuberant belly. LABORATORY DATA: White count is 5, hemoglobin and hematocrit 11 and 34, platelets 164,000. Creatinine is 1.7, which I think is pretty much at baseline. PROBLEM LIST: 1. Chest pain atypical, but he does have cardiac risk factors. Dr. Hinojosa has evaluated the patient and recommended stress testing in the morning, which we will pursue. I have ordered an echo just because I have not seen 1 in a bit and we will get that tomorrow as well. 2. Diabetes. He is on sliding scale insulin. Sugars are not very good at all. He is not really on any medications for it. 3. Metformin is out, because he is 1.7. I am going to start some Lantus because he is just not very well-controlled. I do not really know how well this will work, but we will go ahead and pursue that. 4. Disposition: If his cardiac workup is negative, then anticipate perfusion scan tomorrow. The problem is Dr. Hinojosa did not order it now, so we are not doing a stress test because he just had one, so that is fine. We will continue to monitor. If echo is normal, then anticipate discharge, but I do not know if he is going to be able, I do not think he is going to read it. cc: Anup Pickard MD
[2018-08-07] MEDS ORDERED: BENADRYL PO SCH (21:00)
[2018-08-07] MEDS ORDERED: TYLENOL PO SCH (21:00)
[2018-08-07] MEDS: NEURONTIN PO SCH (23:13)
[2018-08-08 07:38] VITALS: BP 165/70
[2018-08-08] MEDS: DUONEB (A & A) INH SCH (08:12)
[2018-08-08] MEDS ORDERED: BASAGLAR SUBQ SCH (09:00)
[2018-08-08] MEDS: ELIQUIS PO SCH (10:09)
[2018-08-08] MEDS: ASPIRIN EC PO SCH (10:09)
[2018-08-08] MEDS: LASIX PO SCH (10:09)
--- NOTE | 2018-08-08 10:09 | EKG Report ---
Test Performed on : 08/06/2018 2:20:43 PM Test Reason : chest pain Blood Pressure : / mmHG Vent. Rate : 045 BPM Atrial Rate : 045 BPM P-R Int : 254 ms QRS Dur : 096 ms QT Int : 486 ms P-R-T Axes : 046 -19 022 degrees QTc Int : 420 ms Sinus bradycardia. with 1st degree AV block. Otherwise normal ECG When compared with ECG of 06-AUG-2018 11:53, (Unconfirmed) Sinus rhythm. has replaced Junctional rhythm. Unconfirmed Result
[2018-08-08] MEDS: PRINIVIL PO SCH (10:10)
--- NOTE | 2018-08-08 10:11 | EKG Report ---
Test Performed on : 08/07/2018 06:12:01 AM Test Reason : CP Blood Pressure : / mmHG Vent. Rate : 048 BPM Atrial Rate : 048 BPM P-R Int : 206 ms QRS Dur : 104 ms QT Int : 500 ms P-R-T Axes : 083 -15 042 degrees QTc Int : 446 ms Sinus bradycardia. Otherwise normal ECG When compared with ECG of 06-AUG-2018 19:03, (Unconfirmed) No significant change was found Unconfirmed Result
--- NOTE | 2018-08-08 10:11 | EKG Report ---
Test Performed on : 08/06/2018 7:03:34 PM Test Reason : cp Blood Pressure : / mmHG Vent. Rate : 051 BPM Atrial Rate : 051 BPM P-R Int : 220 ms QRS Dur : 096 ms QT Int : 466 ms P-R-T Axes : 107 -21 016 degrees QTc Int : 429 ms Sinus bradycardia. with 1st degree AV block. Otherwise normal ECG When compared with ECG of 06-AUG-2018 14:20, (Unconfirmed) No significant change was found Unconfirmed Result
--- NOTE | 2018-08-08 10:30 | ECHO REPORT ---
ORDER DATE: 08/07/2018 INTERPRETING PHYSICIAN: Dr. Hinojosa REQUESTING PHYSICIAN: CLINICAL INDICATIONS: This is an 83-year-old male with chest discomfort and dyspnea. M-MODE MEASUREMENTS: Right ventricle: cm. Left ventricle end diastole: 4.4 cm. Left ventricle end systole: 2.9 cm. Posterior wall: 1.2 cm. Interventricular septum: 1.2 cm. Left atrium: 4.5 cm. Aortic root: 3.2 cm. SUMMARY OF 2-DIMENSIONAL IMAGIN. Left ventricular function is normal. Ejection fraction is estimated at 60%. No wall motion abnormality is noted. 2. Aortic valve shows sclerosis of the cusps without stenosis. 3. Pulmonic valve is normal. Color flow mapping is unremarkable. 4. The mitral valve shows no significant regurgitation. 5. Pulse wave Doppler of mitral inflow shows normal E/A ratio. 6. Tissue Doppler of septal and lateral mitral annulus was not done in this case. 7. The study was completed with the addition of Definity to optimize visualization of endocardium. 8. Tricuspid valve shows very mild degree of regurgitation. 9. Pulmonary pressure is estimated to be somewhere in the range of 37 to 42 mmHg. 10.There is no pericardial effusion, mass or thrombus. 11.The right-sided chambers did not appear to be particularly enlarged. CONCLUSIONS: In summary, this study showed: 1. Normal left ventricular systolic function. 2. Sclerosis of aortic valve without stenosis. 3. This study was technically difficult, and Definity was added. 4. Diastolic function is probably normal. 5. Borderline pulmonary hypertension. Clinical correlation is recommended. cc: MD Anup Martínez MD
--- NOTE | 2018-08-08 19:01 | DISCHARGE SUMMARY ---
ADMISSION DATE: 08/06/2018 DISCHARGE DATE: 08/08/2018 DIAGNOSES: 1. Chest pain. 2. Diabetes mellitus with A1c of 8.7. 3. Hypertension. 4. Chronic kidney disease stage 3. 5. Obstructive sleep apnea on CPAP per Dr. Nicholson. 6. Chronic back pain. 7. History of deep vein thrombosis in his left leg. This is chronic. DIAGNOSTICS: 1. 08/06/2018 chest x-ray reveals no acute disease. 2. Abdominal x-ray revealed constipation. 3. Echocardiogram revealed normal left ventricular systolic function, sclerosis of the aortic valve without stenosis. Diastolic function is probably normal. Borderline pulmonary hypertension. HOSPITAL COURSE: Mr. Nelson presented to the emergency room complaining of chest pain. He has been ruled out by enzymes. He was evaluated by Cardiology who recommended that given the fact that he had a stress test in January 2018 that showed no evidence of ischemia recommended we repeat an echocardiogram and if this is normal discharge the patient and follow up with Dr. Davon Box. The patient had no further chest pain after being admitted. Just prior to discharge Mr. Nelson became [*] Dr. Hinojosa did call this morning and state that he had evaluated the echocardiogram and he felt that the patient could be discharged. Diabetes mellitus. Dr. Hinojosa did review the echocardiogram felt that the patient could be discharged and as stated above. He denied any further chest pain after admission. He does have a history of diabetes and in the past has used an insulin pump although he states the pump is not working and he has been on no medication for this. He is unable to state how long. He is noted to have a A1c of 8.7. Initial blood sugars were 285 and 237 but they have been in quite some time. Blood sugars were in the 250 to 280 range, although this morning he did have a blood sugar of 65. The patient states that he does have sleep apnea. He does have a CPAP and uses home oxygen at night. Dr. Hinojosa had stated that the patient needed to be evaluated by Pulmonary for possible home O2, although his room air O2 saturations have been 95 to 100 percent resting as well as walking. He did not qualify this admission but we have scheduled an appointment with Dr. Nicholson for outpatient evaluation. DISCHARGE MEDICATIONS: 1. Albuterol nebs q.4 hours p.r.n. 2. Eliquis 2.5 p.o. b.i.d. although the patient states he is not taking this. 3. Lasix 40 mg p.o. daily. 4. Gabapentin 300 mg p.o. at bedtime. 5. Lisinopril/hydrochlorothiazide 20/12.5 one daily. Once again the patient states that his insulin pump is not working. He has not had blood sugar coverage in quite some time. I did encourage him to follow up with his primary care physician, Dr. Andino for an outpatient regimen. DISCHARGE FOLLOWUP: 1. Dr. Nicholson August 11 at 2:[address] Davon Box in 1 month. He is to call and arrange followup. 3. Dr. Andino, his primary care physician in the next 1 to 2 weeks. 4. He has been instructed to call to be seen sooner or return to the emergency room for any syncope, dizziness, chest pain, palpitations, a productive cough, temperature greater than 101, any black or bloody vomitus or stools or for any questions or concerns that he may have. He is being discharged home in stable condition with family members. TIME SPENT: Greater than 30 minutes. Dictated by BARB Alexander for Ryan Juárez MD cc: BARB Alexander MD
--- NOTE | 2018-08-09 07:36 | DISCHARGE SUMMARY ---
ADMISSION DATE: 08/06/2018 DISCHARGE DATE: 08/08/2018 ADDENDUM: The patient will be discharged home. His echo was normal. He is to follow up outpatient with primary care and with Cardiology. Continue to watch his blood sugar. Patient remarked to me on the date of discharge that he had been admitted to the hospital somewhere close to 500 times, was confused that he has been told that he has had an MO and then told he did not. Discussed with patient that it is not necessarily exclusive; he could have had an MO in the past but not currently having an acute MO now. Therefore, he needs to go home and follow up outpatient. cc: Ryan Juárez MD
--- NOTE | 2018-08-09 08:45 | EKG Report ---
Test Performed on : 08/06/2018 11:43:38 AM Test Reason : ER Blood Pressure : / mmHG Vent. Rate : 057 BPM Atrial Rate : 357 BPM P-R Int : 000 ms QRS Dur : 092 ms QT Int : 440 ms P-R-T Axes : 000 -16 022 degrees QTc Int : 428 ms Atrial flutter. with variable AV block. with premature ventricular or aberrantly conducted complexes. and with ventricular escape complexes. Cannot rule out Anterior infarct , age undetermined Abnormal ECG No previous ECGs available Unconfirmed Result
== END 2018-08-08 09:35 | disposition home or self-care (01) ==
LOC: P.MEDSURG 11:40 → P.ED 11:40 → SUATTDRO 17:54
PROVIDERS: ATTEND Family Medicine
CPT/HCPCS: 71020; 71046; 74000; 74018; 80048; 80053; 82550; 82805; 82948; 83036; 83880; 84484; 85025; 85610; 85730; 93005; 93306; 94640; 94761; 96374; 96375; 96376; 99285; A9270; C8929; J1815; J2270; J2405; J7030; Q9957; XXXXX

== ENCOUNTER 2018-12-24 03:23 | Inpatient (IN) ==
--- NOTE | 2018-12-24 03:32 | PROVIDER DOCUMENTATION ---
HPI-Neurological Disorder - General Chief Complaint: Stroke-Like Symptoms Stated Complaint: STROKE ALERT Time Seen by Provider: 12/24/18 03:27 Allergies/Adverse Reactions: Patient Allergies Allergy/AdvReac Type Severity Reaction Status Date / Time No Known Allergies Allergy Verified 12/24/18 03:59 Home Medications: Home Medication List Medication Instructions Recorded Confirmed Last Taken Type Lisinopril/Hydrochlorothiazide 1 each PO DAILY 02/15/12 11/19/18 02/21/18 09:00 History [Lisinopril-Hctz 20-12.5 mg Tab] 1 tab Subcutaneous Insulin Pump [Insulin 1 each MC AC + HS 03/28/12 11/19/18 02/22/18 08:30 History Pump] 18units Furosemide [Lasix] 40 mg PO DAILY #30 01/12/14 11/19/18 02/21/18 09:00 Rx 40mg Apixaban [Eliquis] 2.5 mg PO BID #60 tablet 08/20/16 11/19/18 02/21/18 09:00 Rx 2.5mg Gabapentin 300 mg PO HS 02/22/18 11/19/18 02/21/18 09:00 History Carvedilol 25 mg PO BID 11/19/18 11/19/18 Unknown History Cholestyramine/Aspartame 4 gm PO DAILY 11/19/18 11/19/18 Unknown History [Cholestyramine Light Packet] Atorvastatin Calcium [Lipitor] 80 mg PO DAILY #90 tab 11/25/18 Unknown Rx Nitrofurantoin Macrocrystal 50 mg PO BID #20 cap 11/25/18 Unknown Rx [Macrodantin] - History of Present Illness-Neuro Nature of Presenting Problem: patient brought in by EMS for concern of an acute CVA. They were called for the patient being unresponsive. Upon arrival, the patient was unresponsive. They state that as he was arousing, he appeared to had decreased sensation and strength on the left side. Patient is unable to give further history. 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) Genitourinary: reports: kidney disease Endocrine/Immune: reports: Diabetes - PRIOR SURGERIES/PROCEDURES Surgical/Procedure History: reports: cardiac stent, indwelling device (luis fernando filter ), 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, ), other (cardiac catheter) - IMMUNIZATION STATUS Childhood Immunizations: UTD Flu Vaccine: UTD - FAMILY HISTORY Family History: reviewed, not pertinent Physical Exam- Neurological - Physical Exam-Neuro Initial Vital Signs Reviewed: Yes General Appearance: appears well, alert, no apparent distress Eye Exam: bilateral eye: normal inspection, PERRL, EOMI HENMT: normocephalic/atraumatic, moist mucous membranes, normal ENT inspection Head Injury: no evidence of injury, active bleeding Neck: non-tender, full range of motion Respiratory: chest non-tender, lungs clear, normal breath sounds, no respiratory distress Cardiovascular: normal peripheral pulses, regular rate, rhythm, no edema, no gallop Abdominal Exam: normal bowel sounds, non tender, soft Extremity: normal range of motion, 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 Exam: normal hearing, normal speech Motor/Sensory: no motor deficit, no sensory deficit Neurologic: ag service manager II-XII nml as tested, grossly normal Progress - PLAN OF CARE/RESULTS Progress/Plan/Lab Results: Vital Signs - 8 hr 12/24/18 03:33 12/24/18 03:38 12/24/18 04:04 Pulse Rate 71 58 L 54 L Respiratory Rate 21 19 Blood Pressure 154/69 O2 Sat by Pulse Oximetry 97 98 12/24/18 04:15 12/24/18 04:16 12/24/18 04:30 Pulse Rate 49 L 50 L 50 L Respiratory Rate 24 19 20 Blood Pressure 189/81 O2 Sat by Pulse Oximetry 97 96 96 12/24/18 04:31 Pulse Rate 51 L Respiratory Rate 16 Blood Pressure 166/66 O2 Sat by Pulse Oximetry 97 Laboratory Results - last 24 hr 12/24/18 12/24/18 12/24/18 02:25 03:34 03:34 WBC 9.06 RBC 4.12 L Hgb 12.3 L Hct 36.6 L MCV 88.8 MCH 29.9 MCHC 33.6 RDW Std Deviation 12.7 Plt Count 198 MPV 10.0 Immature Gran % (Auto) 0.2 Neut % (Auto) 62.7 Lymph % (Auto) 26.5 [place] % (Auto) 7.5 Eos % (Auto) 2.5 Baso % (Auto) 0.6 Immature Gran # (Auto) 0.02 Neut # (Auto) 5.68 Lymph # (Auto) 2.40 [place] # (Auto) 0.68 H Eos # (Auto) 0.23 Baso # (Auto) 0.05 PTT (Actin FS) Sodium 143 Potassium 4.2 Chloride 106 Carbon Dioxide 23 L Anion Gap 14 BUN 34 H Creatinine 1.4 H Estimated GFR/1.73 m2 49 BUN/Creatinine Ratio 24 Glucose 45 L Calculated Osmolality 290 Calcium 8.6 L Total Bilirubin 0.68 AST 24 ALT 21 Alkaline Phosphatase 87 Troponin T Total Protein 6.7 Albumin 4.1 Globulin 2.6 Albumin/Globulin Ratio 1.6 Plasma Lactate Urine Source CLEAN CATCH Urine Color YELLOW Urine Turbidity CLEAR Urine pH 6.0 Ur Specific [place] 1.013 Urine Protein 100 A Ur Glucose (Stick) NEGATIVE Ur Ketones (Stick) NEGATIVE Urine Blood TRACE A Urine Nitrite NEGATIVE Urine Bilirubin NEGATIVE Urobilinogen Dipstick NORMAL Urine Leukocytes TRACE A Urine WBC (Auto) <10 Urine RBC (Auto) <10 U Epithel Cells (Auto) <10 Urine Bacteria (Auto) NEGATIVE 12/24/18 12/24/18 12/24/18 03:34 03:34 03:34 WBC RBC Hgb Hct MCV MCH MCHC RDW Std Deviation Plt Count MPV Immature Gran % (Auto) Neut % (Auto) Lymph % (Auto) [place] % (Auto) Eos % (Auto) Baso % (Auto) Immature Gran # (Auto) Neut # (Auto) Lymph # (Auto) Aiken # (Auto) Eos # (Auto) Baso # (Auto) PTT (Actin FS) 34.4 Sodium Potassium Chloride Carbon Dioxide Anion Gap BUN Creatinine Estimated GFR/1.73 m2 BUN/Creatinine Ratio Glucose Calculated Osmolality Calcium Total Bilirubin AST ALT Alkaline Phosphatase Troponin T < 0.010 Total Protein Albumin Globulin Albumin/Globulin Ratio Plasma Lactate 0.9 Urine Source Urine Color Urine Turbidity Urine pH Ur Specific [place] Urine Protein Ur Glucose (Stick) Ur Ketones (Stick) Urine Blood Urine Nitrite Urine Bilirubin Urobilinogen Dipstick Urine Leukocytes Urine WBC (Auto) Urine RBC (Auto) U Epithel Cells (Auto) Urine Bacteria (Auto) Orders Category Date Time Status FSBS/Accucheck Result NOW Care 12/24/18 03:28 Active Nursing- Obtain EKG once Care 12/24/18 03:28 Active Nursing- Obtain EKG once Care 12/24/18 04:43 Active CHEST-PORTABLE [RAD] Stat Exams 12/24/18 03:[address] HEAD W/O CONTRAST [CT] Stat Exams 12/24/18 03:28 Taken CBC WITH ELECTRONIC DIFF [HEME] Stat Lab 12/24/18 03:34 Completed COMPREHENSIVE METABOLIC PANEL [CHEM] Stat Lab 12/24/18 03:34 Completed LACTATE, PLASMA [CHEM] Stat Lab 12/24/18 03:34 Completed PTT [COAG] Stat Lab 12/24/18 03:34 Completed TROPONIN T Stat Lab 12/24/18 03:34 Completed URINALYSIS W/POSS RFLX CULT [URINALYSIS] Stat Lab 12/24/18 02:25 Completed Aspirin Med 12/24/18 04:45 Discontinued 325 mg PO NOW ONE Morphine Med 12/24/18 05:48 Once 4 mg IV NOW ONE Result Diagrams: 12/24/18 03:34 12/24/18 03:34 - REASSESSMENT Reassessment #1 Status: unchanged (patient persistently bradycardic.) - CONSULTS/PCP/HOSPITALIST Notification #1 *Consult/PCP/Hospitalist*: Dr. Silvestre Time Discussed: 05:49 Consult Disposition: Admit Departure - Departure Date of Disposition Decision: 12/24/18 Time of Disposition Decision: 05:49 DIAGNOSIS: Syncope Qualifiers: Syncope type: unspecified Qualified Code(s): R55 - Syncope and collapse Chest pain Qualifiers: Chest pain type: other chest pain Qualified Code(s): R07.89 - Other chest pain; R07.8 - Other chest pain Disposition: ADMITTED INPATIENT 09 Certified Medical Emergency: Emergent Condition: Serious - Critical Care Note This patient required my direct & personal management of CC.: Yes Attestation - Physician/ LIZZY Attestation The physician spent face to face time with patient:: Yes Advanced Practice Provider documentation review:: Supervising physician onsite and consulted in the evaluation and care of this patient. The physician did have a face to face encounter with the patient.
[2018-12-24 04:26] LABS: URINE SOURCE CLEAN CATCH
[2018-12-24 04:28] LABS: BASO# 0.05 X1000 (0.0-0.2); BASO% 0.6 % (0.0-0.8); EOS# 0.23 X1000 (0.0-0.7); EOS% 2.5 % (0.0-10.0); HEMATOCRIT 36.6 % (42.0-52.0); HEMOGLOBIN 12.3 g/dL (14.0-18.0); IMM GRAN# 0.02 X1000 (0.0-0.04); IMM GRAN% 0.2 % (0.0-0.5); LYMPH% 26.5 % (20.5-51.1); MCH 29.9 PG (27-31); MCHC 33.6 g/dL (33-37); MCV 88.8 FL (81-99); MONO# 0.68 X1000 (0.11-0.59); MONO% 7.5 % (1.7-9.3); NEUT# 5.68 X1000 (1.4-6.5); NEUT% 62.7 % (42.2-75.2); PLT 198 X1000 (130-400); RBC 4.12 XMIL (4.7-6.1); RDW 12.7 % (11.5-14.5); WBC 9.06 X1000 (4.8-10.8)
[2018-12-24 04:37] LABS: BILIRUBIN URINE NEGATIVE (NEGATIVE); BLOOD URINE TRACE (NEGATIVE); COLOR YELLOW; GLUCOSE URINE NEGATIVE (NEGATIVE); KETONE URINE NEGATIVE (NEGATIVE); LEUKOCYTES URINE TRACE (NEGATIVE); NITRITE URINE NEGATIVE (NEGATIVE); PROTEIN URINE 100 mg/dL (NEGATIVE); SP GRAVITY URINE 1.013; TURBIDITY URINE CLEAR (CLEAR); UROBILINOGEN URINE NORMAL (NORMAL)
[2018-12-24 04:38] LABS: UR EPITHELIAL CELLS <10 /HPF (<10); URINE BACTERIA NEGATIVE /HPF; URINE RBC <10 /HPF (<10); URINE WBC <10 /HPF (<10)
[2018-12-24] MEDS ORDERED: ASPIRIN PO ONE (04:45)
[2018-12-24 05:00] LABS: ALB/GLOB RATIO 1.6; ALBUMIN 4.1 g/dL (3.5-5.0); CALCIUM 8.6 mg/dL (8.8-10.2); CREATININE 1.4 mg/dL (0.7-1.2); POTASSIUM 4.2 mmol/L (3.5-5.1); TOTAL BILIRUBIN 0.68 mg/dL (0.20-1.00); TOTAL PROTEIN 6.7 g/dL (6.3-8.3)
[2018-12-24] MEDS ORDERED: MORPHINE IV ONE (05:48)
--- NOTE | 2018-12-24 06:52 | EKG Report ---
Test Performed on : 12/24/2018 03:36:33 AM Test Reason : stroke like s/s Blood Pressure : / mmHG Vent. Rate : 056 BPM Atrial Rate : 056 BPM P-R Int : 206 ms QRS Dur : 090 ms QT Int : 476 ms P-R-T Axes : 102 -19 005 degrees QTc Int : 459 ms Sinus bradycardia. with premature supraventricular complexes. Nonspecific ST and T wave abnormality Abnormal ECG When compared with ECG of 19-NOV-2018 16:54, (Unconfirmed) premature supraventricular complexes. are now present Vent. rate has decreased BY [address] now depressed in Inferior leads T wave inversion now evident in Inferior leads Unconfirmed Result
--- NOTE | 2018-12-24 06:53 | EKG Report ---
Test Performed on : 12/24/2018 04:41:35 AM Test Reason : stroke like s/s Blood Pressure : / mmHG Vent. Rate : 048 BPM Atrial Rate : 048 BPM P-R Int : 226 ms QRS Dur : 088 ms QT Int : 494 ms P-R-T Axes : 098 -14 013 degrees QTc Int : 441 ms Sinus bradycardia. with 1st degree AV block. with premature supraventricular complexes. Nonspecific ST abnormality Abnormal ECG When compared with ECG of 24-DEC-2018 03:36, (Unconfirmed) No significant change was found Unconfirmed Result
[2018-12-24] MEDS ORDERED: D50W SYRINGE IV ONE ×3 (07:38→09:05)
[2018-12-24] MEDS ORDERED: D50W SYRINGE ONE (07:44)
--- NOTE | 2018-12-24 08:11 | Diag Imaging Result Doc PS360 ---
EXAM: CHEST-PORTABLE INDICATION: ams TECHNIQUE: One view COMPARISON: 11/19/2018 FINDINGS: Inspiration is slightly suboptimal. The lungs are grossly clear. There is no discrete pleural fluid collection or pneumothorax. The cardiomediastinal silhouette and central vasculature are grossly unremarkable. IMPRESSION: Slightly low lung volumes. No definite acute chest pathology, otherwise. Electronically signed by Ryland Diaz 12/24/2018 8:09 AM
[2018-12-24] MEDS ORDERED: NITROGLYCERIN TOP ONE (08:37)
[2018-12-24] MEDS ORDERED: NITROGLYCERIN ONE (08:39)
[2018-12-24] MEDS: NITROGLYCERIN SL PRN ×4 (08:40→10:55)
--- NOTE | 2018-12-24 11:49 | Diag Imaging Result Doc PS360 ---
EXAM: CT HEAD W/O CONTRAST INDICATION: ams TECHNIQUE: This exam was performed using automated exposure control, adjustment of mA or kV according to patient size, and/or use of iterative reconstruction technique. COMPARISON: 11/19/2018 FINDINGS: There is stable diffuse brain atrophy and suggestion of mild white matter microangiopathy. There is stable dural based calcification noted incidentally at the cranial vault near the apex of the skull on the left. There is no definite acute infarct given the limited sensitivity of CT versus MRI. There is no discrete intracranial mass, mass effect, or intracranial hemorrhage. The surrounding soft tissues and bony structures are essentially unremarkable. IMPRESSION: Stable chronic changes as described. No evidence of acute intracranial pathology by CT. Electronically signed by Ryland Diaz 12/24/2018 11:47 AM
--- NOTE | 2018-12-24 13:37 | EKG Report ---
Test Performed on : 12/24/2018 08:35:36 AM Test Reason : CP Blood Pressure : / mmHG Vent. Rate : 051 BPM Atrial Rate : 050 BPM P-R Int : 000 ms QRS Dur : 092 ms QT Int : 486 ms P-R-T Axes : 000 -22 020 degrees QTc Int : 447 ms Junctional rhythm. Abnormal ECG When compared with ECG of 24-DEC-2018 04:41, (Unconfirmed) Junctional rhythm. has replaced Sinus rhythm. Unconfirmed Result
--- NOTE | 2018-12-24 14:50 | HISTORY AND PHYSICAL ---
CHIEF COMPLAINT: Syncope. HISTORY OF PRESENT ILLNESS: This is an 84-year-old white gentleman with known history of existing heart disease, recently discharged for UTI. The patient has been on insulin pump. He had [address] [facility] a month ago. Apparently, he passed out this morning and blood sugars were 40 and 33. He came to the ER. The patient was given D50. During this time, patient was found to have junctional chest pain going to the left arm. The pain is also somewhat with exertional activity. The patient was admitted in telemetry monitoring. Blood sugar is doing very well. Currently pain-free on nitroglycerin paste. Dr. Box was consulted. I looked at his insulin pump. He is getting an astronomical dose of basal insulin, 100 units a day. I cut it down a little bit, 3 settings, 12 a.m. to 6:30 a.m. 2 units/hour, from 7 a.m. to 9 p.m. 3.5 units/hour, and then from 9 p.m. to 12 at 2 units/hour, total 62 units of basal rate, and basically admitted to the hospital for syncope due to hypoglycemia and also evaluation for this chest pain. PAST MEDICAL HISTORY: 1. Morbid obesity. 2. Chronic kidney disease stage 3. 3. CAD with multiple stents. 4. Type 2 diabetes on insulin pump. 5. Hypertension. 6. Hyperlipidemia. 7. Sleep apnea. 8. Chronic back pain due to spondylosis. 9. 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 PAST SURGICAL HISTORY: 1. Cholecystectomy, open, by Dr. Borjas in 2017. 2. Left foot surgery. 3. Bilateral cataract surgery. 4. History of laparotomy for benign tumor excision. 5. IVC filter. 6. Multiple cardiac stents. 7. Repair of AV fistula in the right groin. 8. I and D of sebaceous cyst in the back and buttocks. ALLERGIES: Not known. 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 No smoking. No alcohol. Lives in [place]. FAMILY HISTORY: Father of heart attack at the age of 40. Mom of brain aneurysm at 39. HEALTH MAINTENANCE: Flu vaccine in 2019. Tetanus in 2014. Last colonoscopy on 08/20/2016. REVIEW OF SYSTEMS: HEENT: No headache. No vision problem. No neck pain. Cardiopulmonary: Chest pain radiating to the left arm. No PND. No orthopnea. No shortness of breath. No swelling of feet. GI: No nausea, vomiting, abdominal pain. : No history of hesitancy, frequency, dysuria. No focal symptoms or weakness. PHYSICAL EXAMINATION: VITAL SIGNS: Temperature is 97 degrees, pulse 53, blood pressure is stable, 5 feet 6 inches, 265 pounds. HEENT: Atraumatic, normocephalic. Pupils equal, reactive to light. NECK: Supple. No lymphadenopathy. CHEST: Bilateral air entry. HEART: Sounds are regular. ABDOMEN: Belly is soft, nontender, obese. EXTREMITIES: Chronic venous stasis dermatitis in the left leg. NEUROLOGIC: No neurological deficits. INVESTIGATIONS: CBC: White cell count 9, hematocrit 36, platelets 198,000. Sodium 143, potassium 4.2, BUN 34, creatinine 1.4, glucose 313. Liver function tests were normal. Urinalysis is clear. EKG initial was junctional, heart rate 50, nothing acute. CT head stable. Chest x-ray low lung volumes. ASSESSMENT AND PLAN: 1. An 83-year-old white male who came in with syncope due to hypoglycemia associated with chest pain. Plan is discontinue insulin pump. I did myself cut down the basal rate from 100 units to 60 units per day with 3 different settings. Will start 9 p.m. tonight. 2. Junctional, probably from beta blockers. 3. Coronary artery disease. Recent multiple stents in [place], percutaneous coronary intervention done. Dr. Box was consulted. 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 Gentle hydration. 4. Reconcile home medicines with Eliquis, Lipitor, and Plavix, Neurontin, and sliding scale with insulin coverage. We will hold the Coreg until Dr. Box sees, and also check the labs in the morning with serial cardiac enzymes. cc: David Andino MD [facility]
--- NOTE | 2018-12-24 15:54 | CARDIOLOGY CONSULTATION ---
DATE: 12/24/2018 CHIEF COMPLAINT ON PRESENTATION: Apparent inability to arouse the patient from sleep. HISTORY OF PRESENT ILLNESS: Mr. Nelson is an 83-year-old gentleman who apparently was grunting and groaning in his sleep and a family member attempted to wake him and could not. EMS was later called. Subsequently presented to the ER and was found to have a point of care glucose of 34. He was administered some glucose and subsequently admitted. During my evaluation the patient had some complaints of some chest discomfort that had been concurring apparently over the last month even after he had 2 stents placed in October by Dr. Sina clarke in [place]. The patient reports the episodes at times occur with exertion as well as with rest, lasts for 2 to 3 minutes or so and have happened 2 to 3 times over the last month. The patient reports compliance with his medications. PAST MEDICAL HISTORY: 1. Significant for coronary disease again with recent catheterization in October 2018. This study demonstrated a left main that had no disease. The LAD had luminal regularities with a large first diagonal with 90% in-stent stenosis in the midportion. The circumflex had proximal 20% disease. There was a first obtuse marginal with diffuse 10 to 20 percent disease, 2nd obtuse marginal had 10 to 20 percent disease distally. RCA was dominant with a proximal 20% disease, 40 to 50 percent in the distal RCA. The patient had 2 [place]arrard drug-eluting stents placed in the diagonal with good result. 2. COPD. 3. History of congestive heart failure, diastolic in nature as his last echo showed an EF of 60%. 4. Hypertension. 5. Hyperlipidemia. 6. Diabetes. 7. History of peripheral vascular disease with interventions to his bilateral lower extremities in the past. 8. Chronic kidney disease. 9. BPH. 10. Morbid obesity. SOCIAL HISTORY: Does not smoke. FAMILY HISTORY: Significant for hypertension. REVIEW OF SYSTEMS: A 10 system review of systems is negative except for those mentioned in HPI. PHYSICAL EXAMINATION: Vital Signs: He is afebrile. His heart rate is 53. His blood pressure is 129/43. General: He is in no acute distress. Morbidly obese. HEENT: Oropharynx is moist. Poor dentition. His eye examination shows pink conjunctivae, white sclerae. Neck: Examination shows no obvious thyromegaly or thyroid tenderness. Cardiovascular: He sounds to be in a regular rate and rhythm. He has no obvious murmurs. He has no S3. He has no lower extremity edema. Chest: Clear bilaterally. He has no increased work of breathing. Abdomen: Soft, nontender, nondistended. He has no obvious organomegaly. Skin: Warm and dry throughout. PERTINENT DATA: His EKG on the 24 of December at 8:35 shows sinus rhythm, PACs. Second EKG occurring on the at 3:36 a.m. again shows sinus rhythm. PACs were identified. He has a very poor baseline, very difficult to see but he does have P-waves. His last EKG which was recorded on the at 4:41 shows again sinus rhythm. PACs were identified. Rate of 48 beats per minute. He had a head CT that shows no evidence of acute findings. He had a chest x-ray that shows low lung volumes otherwise no pathology. His white count is 9. His hematocrit is 36. His platelet count is 198,000. His sodium is 143, potassium 4.2, his BUN is 34, creatinine is 1.4, his albumin is 4.1. ASSESSMENT: Mr. Nelson is an 83-year-old gentleman who presents with complaints of altered mental status presumably secondary to his hypoglycemia. PLAN: At this point, I would continue him on the apixaban. I will change it to b.i.d. We will continue him on atorvastatin at 80, the Plavix at 75. His blood pressures have seemed to be a little bit elevated. I will initiate him on some amlodipine to increase his antianginal therapy. Presently, I do not have any acute recommendations other than that. The patient can be discharged when stable from a primary care physician standpoint. At that point, he can follow up with Dr. Masterson. cc: MD David Rhoades MD
[2018-12-24] MEDS: HUMULIN R SUBQ SCH (17:40)
[2018-12-24] MEDS: NS 1,000 ML IV SCH (17:41)
[2018-12-24] MEDS: DUONEB (A & A) INH SCH ×2 (19:47→23:17)
[2018-12-24] MEDS: NEURONTIN PO SCH (20:58)
[2018-12-24] MEDS: ELIQUIS PO SCH (20:58)
[2018-12-25] MEDS: HUMULIN R SUBQ SCH ×4 (01:09→21:00)
[2018-12-25] MEDS: NS 1,000 ML IV SCH ×2 (01:10→19:35)
[2018-12-25] MEDS: DUONEB (A & A) INH SCH ×6 (03:33→22:52)
[2018-12-25 06:44] LABS: BASO# 0.03 X1000 (0.0-0.2); BASO% 0.5 % (0.0-0.8); EOS# 0.32 X1000 (0.0-0.7); HEMATOCRIT 33.8 % (42.0-52.0); LYMPH# 2.27 X1000 (1.2-3.4); LYMPH% 35.5 % (20.5-51.1); MCH 29.5 PG (27-31); MCHC 32.5 g/dL (33-37); MCV 90.6 FL (81-99); MONO# 0.53 X1000 (0.11-0.59); MONO% 8.3 % (1.7-9.3); MPV 10.4 FL (7.4-10.4); NEUT# 3.25 X1000 (1.4-6.5); NEUT% 50.7 % (42.2-75.2); PLT 170 X1000 (130-400); RBC 3.73 XMIL (4.7-6.1); RDW 12.9 % (11.5-14.5)
[2018-12-25 08:01] LABS: CALCIUM 8.5 mg/dL (8.8-10.2); CREATININE 1.2 mg/dL (0.7-1.2); POTASSIUM 4.6 mmol/L (3.5-5.1)
[2018-12-25] MEDS: ELIQUIS PO SCH ×2 (08:40→21:00)
[2018-12-25] MEDS: PLAVIX PO SCH (08:45)
[2018-12-25] MEDS: NORVASC PO SCH (08:45)
[2018-12-25] MEDS: LIPITOR PO SCH (08:45)
[2018-12-25] MEDS: LASIX PO SCH (08:45)
[2018-12-25] MEDS: PRINZIDE 20/12.5MG PO SCH (08:45)
[2018-12-25] MEDS ORDERED: ELIQUIS PO SCH (09:00)
--- NOTE | 2018-12-25 11:55 | PROGRESS NOTE ---
DATE: 12/25/2018 SUBJECTIVE: The patient is a little better. I appreciated Cardiology consult for the chest pain. He was ruled out. There is no need for any further workup. Previous catheterization findings were discussed with the patient. He started back on insulin pump with 60 units of basal insulin as adjusted. OBJECTIVE: Vital signs: Temperature is 97 degrees, pulse is 58, blood pressure is stable. HEENT: Within normal limits. Chest: Clear. Heart: Sounds are regular. Abdomen: Belly is soft, nontender. Neurologic: No obvious deficits. INVESTIGATIONS: CBC with white cell count 6.4, hematocrit 33.8, platelet count 170,000. Sodium 138, potassium 4.6, chloride 103, BUN is 30, creatinine 1.2, glucose 230. Cardiac enzymes were negative. ASSESSMENT AND PLAN: 1. Syncope due to hypoglycemia. Adjust the basal rate. Continue to monitor in the next 24 hours. 2. Chronic kidney disease, stable. 3. Decreased IV fluids. 4. Junctional rhythm, sinus bradycardia due to Coreg. If continues to be a problem, we will cut down the Coreg dose to 12.5 p.o. b.i.d. I appreciated Cardiology consult. Discussed the findings with the patient. Continue present treatment. 5. Dr. Box added amlodipine low dose and changed the Eliquis to 2.5 p.o. b.i.d. and will follow up. LEVEL OF DOCUMENTATION: 25 minutes. cc: David Andino MD
--- NOTE | 2018-12-25 17:52 | EKG Report ---
Test Performed on : 12/25/2018 06:21:14 AM Test Reason : cp Blood Pressure : / mmHG Vent. Rate : 056 BPM Atrial Rate : 056 BPM P-R Int : 242 ms QRS Dur : 098 ms QT Int : 462 ms P-R-T Axes : 078 -18 024 degrees QTc Int : 445 ms Sinus bradycardia. with 1st degree AV block. Otherwise normal ECG When compared with ECG of 24-DEC-2018 08:35, (Unconfirmed) Sinus rhythm. has replaced Junctional rhythm. Confirmed by Joyce LEYVA, Robert Reyes ([id number]) on 12/28/2018 8:04:22 AM
[2018-12-25] MEDS: NEURONTIN PO SCH (21:00)
[2018-12-25] MEDS: COREG PO SCH (21:00)
[2018-12-26] MEDS: DUONEB (A & A) INH SCH ×6 (03:41→22:39)
[2018-12-26] MEDS ORDERED: TYLENOL PO ONE (04:32)
[2018-12-26] MEDS: HUMULIN R SUBQ SCH ×4 (06:18→21:00)
[2018-12-26] MEDS: NS 1,000 ML IV SCH (06:20)
[2018-12-26] MEDS: LASIX PO SCH (10:10)
[2018-12-26] MEDS: COREG PO SCH ×2 (10:10→22:34)
[2018-12-26] MEDS: NORVASC PO SCH (10:10)
[2018-12-26] MEDS: LIPITOR PO SCH (10:10)
[2018-12-26] MEDS: ELIQUIS PO SCH ×2 (10:10→22:34)
[2018-12-26] MEDS: PLAVIX PO SCH (10:11)
[2018-12-26] MEDS: PRINZIDE 20/12.5MG PO SCH (10:11)
--- NOTE | 2018-12-26 12:01 | PROGRESS NOTE ---
DATE: 12/26/2018 SUBJECTIVE: Blood sugars are running nicely after adjusting the pump. OBJECTIVE: On exam, vitals are stable. No complaints. Chest is clear. Heart sounds are regular. Nonfocal. ASSESSMENT AND PLAN: Syncope, probably due to hypoglycemia, getting better. Gentle hydration. Continue to monitor his heart rate and blood sugars over the next 24 hours. If stable, will discharge in the morning and continue present treatment. LEVEL OF DOCUMENTATION: 25 minutes. cc: David Andino MD
[2018-12-26] MEDS: NEURONTIN PO SCH (22:34)
[2018-12-27] MEDS: DUONEB (A & A) INH SCH ×2 (03:29→08:25)
[2018-12-27] MEDS: TYLENOL PO ONE (06:30)
[2018-12-27] MEDS: NS 1,000 ML IV SCH (06:30)
[2018-12-27] MEDS: HUMULIN R SUBQ SCH (06:30)
[2018-12-27 07:35] VITALS: BP 120/51
[2018-12-27] MEDS: ELIQUIS PO SCH (08:34)
[2018-12-27] MEDS: LIPITOR PO SCH (08:34)
[2018-12-27] MEDS: PRINZIDE 20/12.5MG PO SCH (08:34)
[2018-12-27] MEDS: PLAVIX PO SCH (08:35)
[2018-12-27] MEDS: NORVASC PO SCH (08:35)
[2018-12-27] MEDS: COREG PO SCH (08:35)
[2018-12-27] MEDS: LASIX PO SCH (08:35)
--- NOTE | 2018-12-27 21:38 | DISCHARGE SUMMARY ---
ADMISSION DATE: 12/24/2018 DISCHARGE DATE: 12/27/2018 DISCHARGING DIAGNOSIS: Syncope due to hypoglycemia. SECONDARY DIAGNOSES: 1. Morbid obesity. 2. Chronic kidney disease stage III. 3. Coronary artery disease with multiple stents. 4. Type 2 diabetes, on insulin pump. 5. Hypertension. 6. Hyperlipidemia. 7. Sleep apnea. 8. Chronic back pain due to spondylosis. 9. History of chronic deep vein thrombosis in the left leg with stasis dermatitis in both legs and status post inferior vena cava filter. 10. Right knee pain due to osteoarthritis. CONSULTS: Dr. Box. BRIEF HISTORY: Please see the H P that was done on 12/24/2018. In brief, he is an 83-year-old, white gentleman, who came to the ER with syncope due to low blood sugar. Apparently, patient has been on insulin pump and he has been taking 99 units per day. I did adjust the insulin pump, cut it down to 60 units along with the same bolus doses. I put him back on the low doses of basal insulin. Subsequently, blood sugars are running between 100 to 150. There were no hypoglycemic episodes. He also complains of right knee pain due to osteoarthritis with recent injury from the fall. No fracture identified. Also, he had some chest pain. He was ruled out by Dr. Box. He should just continue on medical management at this time. There is no need for any further workup. LABORATORY: CBC: White cell count 6.4, hematocrit 33.8, platelets 170,000. Sodium 138, potassium 4.6, BUN 30, creatinine 1.2, glucose 233. Cardiac enzymes were negative. ProBNP 950. DISPOSITION: At the time of discharge, the patient is stable. DISCHARGE INSTRUCTIONS: 1. Insulin pump decreased to 60 units per day. 2. Lisinopril/hydrochlorothiazide 20/12.5 daily. 3. Lasix 40 mg daily. 4. Neurontin 300 at bedtime, 5. Coreg 25 p.o. b.i.d. 6. Lipitor 80 mg daily. 7. Plavix 75 daily. 8. Eliquis 2.5 p.o. b.i.d. 9. Sulindac as needed. 10. Medrol Dosepak as directed. 11. Follow up in my office in 2 weeks for the hypoglycemia and maintenance of sugar control. cc: MD Davon Alexandra MD
== END 2018-12-27 10:50 | disposition home or self-care (01) | DRG 638 ==
LOC: ED 03:23 → 3N 09:19
PROVIDERS: ADMIT Internal Medicine; ATTEND Internal Medicine